=== PATIENT | female | born 1930 | race Asian ===

== ENCOUNTER 2020-02-24 12:59 | Inpatient (IN) | payer MEDICARE, MEDICAID ==
[2020-02-24] VITALS (7 sets, daily range): BP systolic 120–152; BP diastolic 63–91
[~2020-02-24] VITALS: Ht 160 cm; Wt 60.8 kg
--- NOTE | 2020-02-24 13:00 | NUR ---
ED Nurse Note: PATIENT BROUGHT IN BY [facility] FROM [facility] C/O SOB AND SPO2 80%. RECEIVED PATIENT ON NRB 15LMP AT SPO2 94%. PER EMS, PATIENT REPORTED COVID-19 POSITIVE. PATIENT PLACED IN ISOLATION ROOM; DROPLET PRECAUTIONS OBSERVED. PATIENT RESPONDS TO NAME; WITHDRAWS TO PAIN. PATIENT CALM WITH PURPOSEFUL MOVEMENT. CHANGED INTO GOWN; ATTACHED TO MONITOR; ALL SAFETY MEASURES MET. PATIENT
[2020-02-24] MEDS ORDERED: ARICEPT5 MG ORAL (13:20)
[2020-02-24] MEDS ORDERED: KEPPRA500 M4 ORAL (13:20)
[2020-02-24] MEDS ORDERED: SINGULAIR10 MG ORAL (13:20)
[2020-02-24] MEDS ORDERED: LYRICA75 M1 ORAL (13:20)
[2020-02-24] MEDS ORDERED: PROTONIX40 MG ORAL (13:20)
[2020-02-24] MEDS ORDERED: NAMENDA5 MG ORAL (13:20)
[2020-02-24] MEDS ORDERED: HYZAAR 50-12.51 EACH ORAL (13:20)
[2020-02-24] MEDS ORDERED: SPIRONOLACTONE25 MG ORAL (13:35)
[2020-02-24] MEDS ORDERED: NORCO 5-325 TA1 EAC1 ORAL (13:35)
[2020-02-24] MEDS ORDERED: MYSOLINE50 M1 PO (13:35)
[2020-02-24] MEDS ORDERED: ASPIR 8181 MG ORAL (13:35)
[2020-02-24] MEDS ORDERED: MILK OF MA400 MG/51 ORAL (13:35)
[2020-02-24] MEDS ORDERED: VASCEPA1 GM PO (13:35)
--- NOTE | 2020-02-24 13:36 | NUR ---
ED Nurse Note: EKG DONE AT BEDSIDE BY [facility].
--- NOTE | 2020-02-24 13:45 | NUR ---
ED Nurse Note: IV ACCESS ESTABLISHED PRIOR TO ARRIVAL. 2ND IV ACCESS ESTABLISHED ON RIGHT AC 20 G. BLOOD, INITIAL LACTIC, BLOOD CULTURES, URINE, FLU COVID 19 MRSA VRE CRE SWAB COLLECTED; SENT DOWN TO LAB. UPON SKIN ASSESSMENT, SKIN INTACT. RECTAL TEMP 101F; NOTIFIED FARNCK NIXON. NO NEW ORDERS GIVEN.
--- NOTE | 2020-02-24 14:09 | Emergency Room Report ---
History of Present Illness General Chief Complaint: Dyspnea/Respdistress Source: Patient, EMS Present Illness HPI Patient presents with complaints of shortness of breath upper respiratory infection symptoms patient was also reported to be positive Covid-19 At the nursing facility patient herself has underlying dementia and cannot provide significant input There was no reports of vomiting or diarrhea History of present illness is significantly limited Unknown regarding Any rash patient does have DNR DNI status on file upon presentation Allergies: Coded Allergies: No Known Allergies (Unverified , 02/24/20) COVID-19 Screening Contact w/high risk pt: Yes Recent Travel to affected area: No Experienced COVID-19 symptoms?: Yes COVID-19 symptoms experienced: Fever (T>100.4F or >38C), Shortness of Breath, Cough, Runny Nose Patient History Past Medical History: see triage record Last Menstrual Period: 20 years ago Now: No Reviewed Nursing Documentation: PMH: Agreed; PSxH: Agreed Nursing Documentation-PMH Past Medical History: No History, Except For Hx Hypertension: Yes Hx COPD: Yes Hx Neurological Problems: Yes Hx Cerebrovascular Accident: Yes Hx Seizures: No - R PUBIC FX, MUSCLE WEAKNESS, OSTEOPOROSIS, DEMENTIA, GERD, THROMBOCYTOPENIA Review of Systems All Other Systems: negative except mentioned in HPI Physical Exam Vital Signs Date Time Temp Pulse Resp B/P (MAP) Pulse Ox O2 Delivery O2 Flow Rate FiO2 02/24/20 12:54 95.5 88 22 148/91 (110) 94 Non-Rebreather 15.0 Sp02 EP Interpretation: reviewed, normal General Appearance: no apparent distress Head: normocephalic, atraumatic Eyes: bilateral eye PERRL, bilateral eye EOMI ENT: EOM grossly intact Neck: supple Respiratory: crackles - Both lower lobes Cardiovascular #1: regular rate, rhythm Gastrointestinal: non tender, soft Musculoskeletal: other - No obvious focal deficit Neurologic: responsive - Awake and responsive however does not follow all commands Skin: no rash Lymphatic: no adenopathy Procedures Critical Care Time Critical Care Time 50 minutes for multiple re-evaluations presentation concerning for covid-19 possible acute decompensation and respiratory failure not including any procedural time Medical Decision Making Diagnostic Impression: Primary Impression: Respiratory distress Additional Impression: COVID-19 virus detected ER Course Patient is a fairly complex patient with multiple differential to consideration including but not limited to cardiac cardiopulmonary and vascular emergencies Patient is positive covid-19 from nursing facility x-ray does show concerning findings of bilateral infiltrates as well Patient has further hydration performed contact is made with inpatient physician for further antibiotics and Medication Patient is a DO NOT INTUBATE, DO NOT RESUSCITATE And admitted for further inpatient care in critical condition Labs Test 02/26/20 10:40 02/27/20 08:36 02/27/20 09:20 White Blood Count 18.3 K/UL (4.8-10.8) 24.1 K/UL (4.8-10.8) Red Blood Count 4.07 M/UL (4.20-5.40) 4.28 M/UL (4.20-5.40) Hemoglobin 12.6 G/DL (12.0-16.0) 13.1 G/DL (12.0-16.0) Hematocrit 35.4 % (37.0-47.0) 37.7 % (37.0-47.0) Mean Corpuscular Volume 87 FL (80-99) 88 FL (80-99) Mean Corpuscular Hemoglobin 31.0 PG (27.0-31.0) 30.7 PG (27.0-31.0) Mean Corpuscular Hemoglobin Concent 35.6 G/DL (32.0-36.0) 34.8 G/DL (32.0-36.0) Red Cell Distribution Width 9.4 % (11.6-14.8) 10.0 % (11.6-14.8) Platelet Count 289 K/UL (150-450) 307 K/UL (150-450) Mean Platelet Volume 5.4 FL (6.5-10.1) 5.4 FL (6.5-10.1) Neutrophils (%) (Auto) % (45.0-75.0) % (45.0-75.0) Lymphocytes (%) (Auto) % (20.0-45.0) % (20.0-45.0) Monocytes (%) (Auto) % (1.0-10.0) % (1.0-10.0) Eosinophils (%) (Auto) % (0.0-3.0) % (0.0-3.0) Basophils (%) (Auto) % (0.0-2.0) % (0.0-2.0) Differential Total Cells Counted 100 100 Neutrophils % (Manual) 88 % (45-75) 95 % (45-75) Lymphocytes % (Manual) 7 % (20-45) 2 % (20-45) Monocytes % (Manual) 5 % (1-10) 3 % (1-10) Eosinophils % (Manual) 0 % (0-3) 0 % (0-3) Basophils % (Manual) 0 % (0-2) 0 % (0-2) Band Neutrophils 0 % (0-8) 0 % (0-8) Platelet Estimate Adequate Adequate Platelet Morphology Normal Normal Red Blood Cell Morphology Normal Normal Sodium Level 142 MMOL/L (136-145) 146 MMOL/L (136-145) Potassium Level 4.8 MMOL/L (3.5-5.1) 4.3 MMOL/L (3.5-5.1) Chloride Level 107 MMOL/L (98-107) 112 MMOL/L (98-107) Carbon Dioxide Level 18 MMOL/L (21-32) 19 MMOL/L (21-32) Anion Gap 17 mmol/L (5-15) 15 mmol/L (5-15) Blood Urea Nitrogen 27 mg/dL (7-18) 30 mg/dL (7-18) Creatinine 0.9 MG/DL (0.55-1.30) 0.9 MG/DL (0.55-1.30) Estimat Glomerular Filtration Rate 59.0 mL/min (>60) 59.0 mL/min (>60) Glucose Level 111 MG/DL (74-106) 157 MG/DL (74-106) Calcium Level 9.1 MG/DL (8.5-10.1) 9.1 MG/DL (8.5-10.1) Magnesium Level 1.9 MG/DL (1.8-2.4) Pro-B-Type Natriuretic Peptide 74741 pg/mL (0-125) Arterial Blood pH 7.370 (7.350-7.450) Arterial Blood Partial Pressure CO2 37.6 mmHg (35.0-45.0) Arterial Blood Partial Pressure O2 47.3 mmHg (75.0-100.0) Arterial Blood HCO3 21.2 mmol/L (22.0-26.0) Arterial Blood Oxygen Saturation 85.9 % (95-100) Arterial Blood Base Excess 3.6 (-2-2) Isaac Test Positive Rhythm Strip Diag. Results EP Interpretation: yes Rate: 88 Rhythm: NSR, no PVC's, no ectopy Chest X-Ray Diagnostic Results Chest X-Ray Diagnostic Results : Chest X-Ray Ordered: Yes # of Views/Limited/Complete: 1 View Indication: Shortness of Breath EP Interpretation: Yes Interpretation: no effusion, no pneumothorax, other - Bilateral patchy infiltrates Impression: Other - Bilateral patchy infiltrates Electronically Signed by: Estefanía Houser DO Last Vital Signs Date Time Temp Pulse Resp B/P (MAP) Pulse Ox O2 Delivery O2 Flow Rate FiO2 02/24/20 12:54 95.5 88 22 148/91 (110) 94 Non-Rebreather 15.0 Status: improved Disposition: ADMITTED INPATIENT Condition: Critical Referrals: NON PHYSICIAN (PCP) Estefanía Houser DO Feb 24, 2020 14:09
--- NOTE | 2020-02-24 14:27 | Diagnostic Imaging Report ---
Indication: Chest pain Technique: One view of the chest Comparison: none Findings: There is fairly extensive and diffuse bilateral mixed airspace and interstitial disease. This is slightly worse on the right than on the left. There may be a small effusion on the right. The heart size is upper limits normal. The aorta is tortuous calcified. Small metallic foreign bodies are seen within the supraclavicular fossae bilaterally. These probably represent residual from prior acupuncture Impression: Bilateral diffuse and fairly extensive interstitial and airspace infiltrates, versus edema Suspect small right pleural effusion
--- NOTE | 2020-02-24 14:30 | NUR ---
ED Nurse Note: per lab, initial chemistry grossly hemolyzed; repeat chemistry drawn; sent down to lab.
[2020-02-24 14:45] LABS: BASOPHILS % (AUTO) 0.3 % (0.0-2.0); EOSINOPHILS % (AUTO) 3.1 % (0.0-3.0); HEMATOCRIT 43.1 % (37.0-47.0); HEMOGLOBIN 14.9 G/DL (12.0-16.0); MEAN CORPUSCULAR VOLUME 88 FL (80-99); MONOCYTES % (AUTO) 7.2 % (1.0-10.0); NEUTROPHILS % (AUTO) 73.4 % (45.0-75.0); PLATELET COUNT 276 K/UL (150-450); RED BLOOD COUNT 4.89 M/UL (4.20-5.40); RED CELL DISTRIBUTION WIDTH 9.7 % (11.6-14.8)
[2020-02-24 14:54] LABS: APPEARANCE,URINE CLEAR; BILIRUBIN, URINE NEGATIVE (NEGATIVE); GLUCOSE, URINE (UA) NEGATIVE (NEGATIVE); KETONES,URINE 1+ (NEGATIVE); LEUKOCYTE ESTERASE ,URINE NEGATIVE (NEGATIVE); NITRITE,URINE NEGATIVE (NEGATIVE); PH,URINE 5 (4.5-8.0); PROTEIN,URINE 1+ (NEGATIVE); UROBILINOGEN,URINE NORMAL MG/DL (0.0-1.0)
[2020-02-24 14:56] LABS: COLOR,URINE YELLOW
--- NOTE | 2020-02-24 15:50 | NUR ---
ED Nurse Note: responsibility assumed. Pt in bed on 15L NRB, VSS. Pt on monitor. Requested sitter via Charge nurse for close monitoring. Awaiting orders.
--- NOTE | 2020-02-24 16:30 | NUR ---
ED Nurse Note: Pt resting in bed, VSS, on 15L NRB.
--- NOTE | 2020-02-24 17:30 | NUR ---
ED Nurse Note: Pt resting in bed on 15L NRB vss no ss of distress noted.
--- NOTE | 2020-02-24 18:25 | NUR ---
ED Nurse Note: Unable to make contact with warehouse handler regarding sitter. will continue to monitor. pt resting in bed on 15L NRB VSS. no ss of distress noted.
--- NOTE | 2020-02-24 19:25 | NUR ---
ED Nurse Note: Pt resting in bed, VSS on 15L NRB. NO ss of distress noted. Report and hand off given to MITCHELL Salazar and responsibility assumed.
--- NOTE | 2020-02-24 20:40 | NUR ---
ED Nurse Note: Hand off given by MITCHELL Salazar. Pt placed in RM 07 and placed on monitor. PT on 15L NRB. VSS no ss of distress noted.
--- NOTE | 2020-02-24 21:30 | NUR ---
ED Nurse Note: IV fluids initiated. pt tolerated well no ss of distress noted.
[2020-02-24] MEDS ORDERED: Azithromycin 250mg tab ORAL ONE (23:00)
[2020-02-24] MEDS ORDERED: Hydroxychloroquine Fact Sheet MISC ONE (23:00)
[2020-02-24] MEDS: Lyrica 75mg cap ORAL SCH (23:00)
[2020-02-24] MEDS ORDERED: Milk of Magnesia 30ml Ud ORAL PRN (23:00)
--- NOTE | 2020-02-24 23:00 | NUR ---
ED Nurse Note: IV fluids initiated and running on IV pump. Pt tolerating well, no ss of distress noted.
[2020-02-24] MEDS: 1/2NS w/KCl 20mEq 1000ml 1,000 ML IV SCH (23:37)
[2020-02-25 00:15] VITALS: BP 112/81
[2020-02-25] MEDS ORDERED: Azithromycin 500 MG in NS 275 ML IV ONE (00:30)
[2020-02-25] MEDS ORDERED: levETIRAcetam 500mg/NS100ml 100 ML IVPB ONE (00:30)
--- NOTE | 2020-02-25 01:30 | NUR ---
ED Nurse Note: pt resting in bed, vss no ss of distress noted.
--- NOTE | 2020-02-25 03:56 | NUR ---
ED Nurse Note: lab at bedside
--- NOTE | 2020-02-25 04:15 | Consultation ---
DATE OF CONSULTATION: 02/24/2020 CARDIOLOGY CONSULTATION CONSULTING PHYSICIAN: Milton Webb M.D. REFERRING PHYSICIAN: Yoel Strong M.D. REASON: Cardiovascular management in the setting of COVID-19 pneumonia. HISTORY OF PRESENT ILLNESS: This is an 89-year-old male. He has a history of hypertension, COPD, and cerebrovascular disease. He was sent to the emergency room for evaluation of respiratory distress and hypoxia with a positive COVID-19 swab isolated. He has had exposure at the [facility] other patients with COVID-19. PAST MEDICAL HISTORY: Includes hypertension, COPD, osteoporosis, GERD, cerebrovascular disease with dementia, history of right pubic fracture. ALLERGIES: None. MEDICATIONS: Reviewed and reconciled. ADVANCE DIRECTIVE: DNR. FAMILY HISTORY: Noncontributory. SOCIAL HISTORY: No record of recent smoking, alcohol, or substance abuse. REVIEW OF SYSTEMS: Pertinent data from records is obtained and outlined above. Otherwise, patient is unable to give any reliable historical data. PHYSICAL EXAMINATION: VITAL SIGNS: Blood pressure 148/91, heart rate 88, respirations 22, temperature 95.5, he is saturating 94% on a non-rebreather mask. HEENT: Temporal wasting. LUNGS: Bilateral rales. Jugular venous pressure normal. No accessory muscle use. CARDIAC: Regular rhythm and rate. Normal S1, S2 with a 1/6 systolic murmur at base. ABDOMEN: Soft. EXTREMITIES: No edema. NEUROLOGIC: Symmetric strength. Moderate cognitive impairment. EKG is pending. Chest x-ray reveals diffuse interstitial airspace disease with right pleural effusion. IMPRESSION: 1. COVID-19 pneumonia. 2. Hypertensive heart disease. 3. Cerebrovascular disease. 4. Hypoxia. 5. Seizure disorder. PLAN: 1. High risk for progression of pulmonary disease. 2. Hydroxychloroquine should be started. 3. He has already received a dose of azithromycin. Further treatment with azithromycin will be considered following review of his EKG. 4. He will be placed on cardiac cath lab radiology technologist. 5. Potassium and magnesium levels will be closely followed. Milton Webb M.D. DR: CHARBEL JOB#: [id number] CC:
--- NOTE | 2020-02-25 05:45 | NUR ---
ED Nurse Note: pt resting in bed, vss no ss of distress noted.
--- NOTE | 2020-02-25 07:18 | NUR ---
ED Nurse Note: report given to Mayra Dwyer RN
[2020-02-25 07:20] VITALS: BP 124/84
--- NOTE | 2020-02-25 08:30 | NUR ---
ED Nurse Note: Blood drawn (green and purple top) sent to labs.
--- NOTE | 2020-02-25 08:45 | NUR ---
TRANSFER TO FLOOR: Patient transferred to [address] [place] [address] as ordered, per Dr. Webb. Report given to MITCHELL Blancas. Belongings and medications given to receiving nurse. Family and or S/O informed of transfer.
[2020-02-25 08:48] LABS: BASOPHILS % (AUTO) 0.3 % (0.0-2.0); EOSINOPHILS % (AUTO) 0.3 % (0.0-3.0); HEMATOCRIT 37.7 % (37.0-47.0); HEMOGLOBIN 12.9 G/DL (12.0-16.0); LYMPHOCYTES % (AUTO) 8.9 % (20.0-45.0); MEAN CORPUSCULAR VOLUME 89 FL (80-99); MONOCYTES % (AUTO) 7.1 % (1.0-10.0); NEUTROPHILS % (AUTO) 83.4 % (45.0-75.0); PLATELET COUNT 236 K/UL (150-450); RED BLOOD COUNT 4.24 M/UL (4.20-5.40); RED CELL DISTRIBUTION WIDTH 9.9 % (11.6-14.8); WHITE BLOOD COUNT 9.2 K/UL (4.8-10.8)
[2020-02-25 08:54] LABS: ANION GAP 10 mmol/L (5-15); BLOOD UREA NITROGEN 47 mg/dL (7-18); CALCIUM 9.2 MG/DL (8.5-10.1); CARBON DIOXIDE 23 MMOL/L (21-32); CHLORIDE 106 MMOL/L (98-107); CREATININE 1.1 MG/DL (0.55-1.30); POTASSIUM 5.4 MMOL/L (3.5-5.1); SODIUM 139 MMOL/L (136-145)
--- NOTE | 2020-02-25 08:56 | NUR ---
NURSE NOTES: Received patient from MITCHELL Nunez from emergency room. Patient is aox1, nonverbal, confused and restless. Isolation precautions observed and initiated for Positive COVID-19. Patient came in hospital bed. Patient is on non rebreather mask at 15L and o2 sat of 96%. Patient VS stable, Patient placed on cardiac care nurse and placed in gown. Patient has a morris catheter present on admission draining yellow colored urine. Patient has a L FA 20g running 1/2 NS with 20 mEq of KCL at 100ml/hr and a R hand 20g patent and saline locked. Bed is in lowest position, locked, and alarmed. Optimal HOB placement. Side rails x3 and call light placed within reach. Will continue to monitor.
[2020-02-25 09:00] VITALS: BP 133/92
[2020-02-25] MEDS: 1/2NS w/KCl 20mEq 1000ml 1,000 ML IV SCH (09:00)
[2020-02-25] MEDS: Lyrica 75mg cap ORAL SCH ×3 (09:00→18:00)
[2020-02-25 09:07] LABS: ALANINE AMINOTRANSFERASE 29 U/L (12-78); ALBUMIN 2.8 G/DL (3.4-5.0); ALBUMIN/GLOBULIN RATIO 0.6 (1.0-2.7); ALKALINE PHOSPHATASE 55 U/L (46-116); ASPARTATE AMINO TRANSFERASE 62 U/L (15-37); BILIRUBIN,TOTAL 0.5 MG/DL (0.2-1.0)
--- NOTE | 2020-02-25 09:40 | NUR ---
NURSE NOTES: patient unable to take medication due to SOB when taken off non rebreather mask.
--- NOTE | 2020-02-25 10:45 | NUR ---
NURSE NOTES: Called Dr. Webb regarding patient potassium level of 5.4. IV fluid on hold until clarified orders. Charge nurse made aware.
--- NOTE | 2020-02-25 11:00 | NUR ---
NURSE NOTES: Dr. Webb notified of patient having difficulty swallowing medication. Charge nurse notified.
[2020-02-25 16:00] VITALS: BP 142/72
[2020-02-25] MEDS ORDERED: 1/2 NS 1000ml IV ONE (16:53)
--- NOTE | 2020-02-25 17:25 | NUR ---
HAND-OFF: Report given to MITCHELL Murillo. Patient in stable condition. Addendum: 02/25/20 at 2019 by Yonny Aguirre RN Corrected time 1924
--- NOTE | 2020-02-25 17:26 | NUR ---
NURSE NOTES: received pt from Yash RN., pt is awake and confused Wolof speaker. pt seems irritable. bilateral soft wrist restrain is on the pt, pulse noted, skin intact. Right hand 20G and Right wrist 20G IV site intact, clean, and patent. Christensen cath is in place draining well with gravity. non-breather mask 15L no SOB noted. pt's O2sat is at 97%. call light within reach. bed at the lowest position, alarmed, and locked. will continue to monitor pt with plan of care.
--- NOTE | 2020-02-25 18:45 | Consultation ---
DATE OF CONSULTATION: 02/25/2020 PULMONARY CONSULTATION CONSULTING PHYSICIAN: Gaurav Melissa MD. HISTORY OF PRESENT ILLNESS: This is an 89-year-old male who is admitted to the hospital with findings of COVID-19 positivity. He is a detention resident and has been exposed to with COVID-19. Currently, the patient denies any symptoms. He is however on non-rebreather mask at 15 L, saturations being 94%. Upon review of his imaging studies, I note that his x-ray of chest has shown bilateral interstitial opacities as well as small right effusion. Per review of his medications, I note that the patient has received Plaquenil as well as azithromycin. PAST MEDICAL HISTORY: Notable for hypertension, COPD, osteoporosis, GERD, previous CVA, dementia, and previous fractures in the pubic area. ALLERGIES: None. HOME MEDICATIONS: Reviewed and reconciled in the chart. Current antibiotics include Plaquenil and azithromycin. CODE STATUS: DNR. SOCIAL HISTORY: senior care resident. PHYSICAL EXAMINATION: GENERAL: Reveals an 89-year-old male. VITAL SIGNS: O2 saturation 98% on non-rebreather mask. HEENT: Unremarkable. LUNGS: Show decreased breath sounds bilaterally. HEART: Normal heart sounds. ABDOMEN: Soft. EXTREMITIES: There is no edema. LABORATORY DATA: Lab testing shows normal CBC and BMP with a potassium of 5.4, creatinine 1.1. Troponin 0.008. Lactic acid 1.6. IMPRESSION: 1. COVID-19 pneumonia. 2. Hypertension. 3. CVA. 4. Severe hypoxemia. DISCUSSION: Admit to the hospital. Continue broad-spectrum antibiotics. satellite project site monitor. Oxygen via non-rebreather mask. Avoid hypo-oxygen. Code status DNR. We will follow carefully. Gaurav Melissa M.D. DR: Hazel JOB#: [id number] CC:
--- NOTE | 2020-02-25 19:30 | Consultation ---
DATE OF CONSULTATION: 02/25/2020 INFECTIOUS DISEASES CONSULTATION CONSULTING PHYSICIAN: Nicholas Hoang MD. REFERRING PHYSICIAN: Milton Webb MD. REASON FOR CONSULTATION: To rule out COVID-19 pneumonia. HISTORY OF PRESENTING ILLNESS: This is an 89-year-old lady with history of dementia, who came in with shortness of breath. She was also found to be positive for COVID-19 and has been admitted and Infectious Diseases consultation has been obtained for antibiotics. PAST MEDICAL HISTORY: 1. History of dementia. 2. History of hypertension. 3. COPD. 4. CVA. SOCIAL HISTORY: Unknown. FAMILY HISTORY: Unknown. REVIEW OF SYSTEMS: Unable to obtain currently. MEDICATIONS: As an inpatient, she is on hydroxychloroquine, Lyrica, Keppra, milk of magnesia, and Tylenol. ALLERGIES: No known drug allergies. PHYSICAL EXAMINATION: VITAL SIGNS: Temperature of 99.2, T-max of 101.1, pulse of 99, respiratory rate 17, blood pressure of 133/92, and O2 saturation of 94%. GENERAL: Examination deferred due to COVID-19. LABORATORY DATA: White count 9.2, hemoglobin 12.9, hematocrit 37.7, MCV 89, platelet count of 236,000; neutrophils of 83%. Sodium 139, potassium 5.4, chloride 106, bicarb 23, BUN 47, creatinine 1.1, glucose 122, calcium 9.2. Total bilirubin 0.5, AST 62, ALT 29, alkaline phosphatase 55. Troponin 0.008. Total protein 7.2, albumin 2.8. UA is showing zero white cells. Chest x-ray is showing bilateral diffuse and fairly extensive interstitial and airspace disease versus edema, small right-sided pleural effusion noted. ASSESSMENT: 1. This is an 89-year-old lady with history of dementia as well as hypertension and COPD, who comes in with shortness of breath and was tested positive for COVID-19 pneumonia. 2. Hypertension. 3. COPD. 4. CVA. 5. Dementia. PLAN: 1. Continue hydroxychloroquine. 2. Continue isolation. 3. We will follow up the patient clinically. I would like to thank, Dr. Webb, for this consultation. Nicholas Hoang M.D. DR: Ericka JOB#: [id number] CC: Milton Webb M.D.
--- NOTE | 2020-02-26 02:00 | NUR ---
NURSE NOTES: cleaned pt, provided new gown, provided oral care, and pt reposition her self at this moment. Bilateral soft wrist restrain, pulse noted, skin intact, and pt does not show SOB at this moment.
--- NOTE | 2020-02-26 03:15 | Progress Note ---
DATE: 02/25/2020 CARDIOLOGY PROGRESS NOTE SUBJECTIVE: Condition is deteriorating, increasing shortness of breath and hypoxia noted. The patient is also febrile. OBJECTIVE: VITAL SIGNS: 100.8 temperature, blood pressure 142/72, heart rate 104, respiratory rate 23. She is on 15 liters non-rebreather mask. Saturating 97%. Exam limited due to isolation. LUNGS: Bilateral rhonchi. CARDIAC: Regular rhythm. Rapid rate. Normal S1, S2. ABDOMEN: Soft. EXTREMITIES: No edema. LABORATORY AND DIAGNOSTIC DATA: Sodium 139, potassium 5.4, bicarb 23. BUN 47, creatinine 1.1. Glucose 122. Albumin 2.8. Troponin negative. White count 9.2, hemoglobin 12.9. Urinalysis with no active sediment. Chest x-ray yesterday was notable for patchy infiltrates and airspace disease. IMPRESSION: 1. COVID-19 pneumonia. 2. Respiratory failure. 3. Hypoxia. 4. Prerenal azotemia. 5. Moderate protein-calorie malnutrition. 6. Hyperkalemia. 7. Sinus tachycardia. 8. Ischemic heart disease. PLAN: 1. Remove potassium from IV fluids. 2. Adjust IV fluid rate. 3. Respiratory therapy, oxygenation. 4. Continue day #2 of hydroxychloroquine and azithromycin. 5. Monitor QTc intervals. 6. DNR, DNI based on advanced directives. Milton Webb M.D. DR: TITO JOB#: [id number] CC:
--- NOTE | 2020-02-26 07:15 | NUR ---
HAND-OFF: Report given to Mariana MEDRANO., pt remians stable condition at this moment. endorsed plan of care.
--- NOTE | 2020-02-26 07:16 | NUR ---
NURSE NOTES: Received patient in bed. Awake, confused, on bilateral soft wrist restraints. Patient unable to follow commands. Noted patient with morris cath and matt urine noted in drainage bag. Contact and droplet isolation observed. Bed in lowest position. On non rebreather mask with oxygen saturation at 90%. Will continue plan of care.
[2020-02-26 08:00] VITALS: BP 136/77
[2020-02-26] MEDS: Lyrica 75mg cap ORAL SCH ×3 (09:00→18:00)
[2020-02-26] MEDS: Heparin 5000 units/ml inj SUBQ SCH ×2 (09:22→23:11)
--- NOTE | 2020-02-26 11:13 | Pulmonology Progress Note ---
Assessment/Plan Assessment/Plan IMPRESSION: 1. COVID-19 pneumonia. 2. Hypertension. 3. CVA. 4. Severe hypoxemia. On non-rebreather mask DISCUSSION: Continue broad-spectrum antibiotics. medicare nurse. Oxygen via non-rebreather mask. Code status DNR. I will follow carefully. Gaurav Melissa M.D. Subjective Interval Events: None new Constitutional: Reports: no symptoms HEENT: Repors: no symptoms Respiratory: Reports: shortness of breath Cardiovascular: Reports: no symptoms Allergies: Coded Allergies: No Known Allergies (Unverified , 02/24/20) Objective Last 24 Hour Vital Signs Date Time Temp Pulse Resp B/P (MAP) Pulse Ox O2 Delivery O2 Flow Rate FiO2 02/26/20 08:00 Non-Rebreather 15.0 02/26/20 08:00 15.0 02/26/20 07:58 97 02/26/20 04:00 15.0 02/26/20 04:00 Non-Rebreather 15.0 02/26/20 03:51 108 02/26/20 00:00 15.0 02/26/20 00:00 Non-Rebreather 15.0 02/25/20 23:51 104 02/25/20 20:00 15.0 02/25/20 20:00 Non-Rebreather 15.0 02/25/20 19:25 115 02/25/20 16:00 15.0 02/25/20 16:00 107 02/25/20 16:00 Non-Rebreather 15.0 02/25/20 16:00 100.8 104 23 142/72 (95) 97 02/25/20 12:00 97 02/25/20 12:00 Non-Rebreather 15.0 02/25/20 12:00 15.0 Intake and Output 02/25/20 02/26/20 19:00 07:00 Intake Total 87.5 ml 761.25 ml Output Total 600 ml Balance 87.5 ml 161.25 ml Intake Oral 0 ml IV Total 87.5 ml 761.25 ml Output Urine Total 600 ml General Appearance: no acute distress HEENT: normocephalic Respiratory/Chest: chest wall non-tender, decreased breath sounds Cardiovascular: normal peripheral pulses Abdomen: soft, non tender Microbiology Date/Time Source Procedure Growth Status 02/24/20 14:00 Blood Blood Culture - Preliminary NO GROWTH AFTER 24 HOURS Resulted 02/24/20 13:45 Blood Blood Culture - Preliminary NO GROWTH AFTER 24 HOURS Resulted 02/24/20 13:45 Nasal Nares - Final Complete 02/24/20 13:45 Nasal Nares - Final Complete Current Medications Medications (Trade) Dose Ordered Sig/Ashley Route PRN Reason Start Time Stop Time Status Last Admin Dose Admin Acetaminophen (Tylenol) 650 mg EVERY 4 HOURS PRN ORAL fever GILL pain 02/24/20 17:00 03/25/20 16:59 Heparin Sodium (Porcine) (Heparin 5000 units/ml) 5,000 units EVERY 12 HOURS SUBQ 02/26/20 09:00 04/11/20 08:59 02/26/20 09:22 Hydroxychloroquine Sulfate (Plaquenil) 200 mg TWICE A DAY ORAL 02/25/20 18:00 02/29/20 09:01 Levetiracetam (Keppra) 250 mg BID ORAL 02/24/20 23:00 03/25/20 22:59 02/24/20 23:36 Magnesium Hydroxide (Mom) 30 ml DAILY PRN ORAL Constipation 02/24/20 23:00 03/25/20 22:59 Pregabalin (Lyrica) 75 mg THREE TIMES A DAY ORAL 02/24/20 23:00 03/25/20 22:59 Sodium Chloride 1,000 ml @ 75 mls/hr [id number] IV 02/25/20 17:30 03/26/20 17:29 02/26/20 05:51 Gaurav Melissa MD Feb 26, 2020 11:13
[2020-02-26 12:00] VITALS: BP 151/69
--- NOTE | 2020-02-26 12:39 | NUR ---
NURSE NOTES: Informed Dr. Yancy Venegas that patient's Covid-19 swab is positive upon admission.
[2020-02-26 12:45] LABS: HEMATOCRIT 35.4 % (37.0-47.0); HEMOGLOBIN 12.6 G/DL (12.0-16.0); MEAN CORPUSCULAR VOLUME 87 FL (80-99); PLATELET COUNT 289 K/UL (150-450); RED BLOOD COUNT 4.07 M/UL (4.20-5.40); RED CELL DISTRIBUTION WIDTH 9.4 % (11.6-14.8); WHITE BLOOD COUNT 18.3 K/UL (4.8-10.8)
--- NOTE | 2020-02-26 12:52 | Infectious Diseases Prog Note ---
Assessment/Plan Assessment/Plan A; 1.COVID19 pneumonia. 2. Hypertension. 3. COPD. 4. CVA. 5. Dementia. PLAN: 1. Continue hydroxychloroquine. 2. Continue isolation. 3. Add Zithromax Subjective ROS Limited/Unobtainable: Yes Constitutional: Reports: fever, other - Hxrc=083.8 Neurologic: Reports: confusion, other - on restraint Allergies: Coded Allergies: No Known Allergies (Unverified , 02/24/20) Objective Vital Signs Last 24 Hour Vital Signs Date Time Temp Pulse Resp B/P (MAP) Pulse Ox O2 Delivery O2 Flow Rate FiO2 02/26/20 11:40 116 02/26/20 08:00 Non-Rebreather 15.0 02/26/20 08:00 98.6 102 23 136/77 (96) 90 02/26/20 08:00 15.0 02/26/20 07:58 97 02/26/20 04:00 15.0 02/26/20 04:00 Non-Rebreather 15.0 02/26/20 03:51 108 02/26/20 00:00 15.0 02/26/20 00:00 Non-Rebreather 15.0 02/25/20 23:51 104 02/25/20 20:00 15.0 02/25/20 20:00 Non-Rebreather 15.0 02/25/20 19:25 115 02/25/20 16:00 15.0 02/25/20 16:00 107 02/25/20 16:00 Non-Rebreather 15.0 02/25/20 16:00 100.8 104 23 142/72 (95) 97 Height (Feet): 5 Height (Inches): 2.99 Weight (Pounds): 149 HEENT: mucous membranes moist Respiratory/Chest: other - few rhonchi, oxygen by rebreathing mask Cardiovascular: tachycardia Abdomen: soft, non tender Extremities: no edema Neurologic/Psychiatric: alert, responsive Microbiology Date/Time Source Procedure Growth Status 02/24/20 14:00 Blood Blood Culture - Preliminary NO GROWTH AFTER 24 HOURS Resulted 02/24/20 13:45 Blood Blood Culture - Preliminary NO GROWTH AFTER 24 HOURS Resulted 02/24/20 13:45 Nasopharynx Coronavirus COVID-19 PCR (STEPHENIE) - Final Complete 02/24/20 13:45 Nasal Nares - Final Complete 02/24/20 13:45 Nasal Nares - Final Complete Laboratory Tests Test 02/26/20 10:40 White Blood Count 18.3 K/UL (4.8-10.8) #H Red Blood Count 4.07 M/UL (4.20-5.40) L Hemoglobin 12.6 G/DL (12.0-16.0) Hematocrit 35.4 % (37.0-47.0) L Mean Corpuscular Volume 87 FL (80-99) Mean Corpuscular Hemoglobin 31.0 PG (27.0-31.0) Mean Corpuscular Hemoglobin Concent 35.6 G/DL (32.0-36.0) Red Cell Distribution Width 9.4 % (11.6-14.8) L Platelet Count 289 K/UL (150-450) Mean Platelet Volume 5.4 FL (6.5-10.1) L Neutrophils (%) (Auto) % (45.0-75.0) Lymphocytes (%) (Auto) % (20.0-45.0) Monocytes (%) (Auto) % (1.0-10.0) Eosinophils (%) (Auto) % (0.0-3.0) Basophils (%) (Auto) % (0.0-2.0) Neutrophils % (Manual) Pending Lymphocytes % (Manual) Pending Platelet Estimate Pending Platelet Morphology Pending Sodium Level Pending Potassium Level Pending Chloride Level Pending Carbon Dioxide Level Pending Blood Urea Nitrogen Pending Creatinine Pending Estimat Glomerular Filtration Rate Pending Glucose Level Pending Calcium Level Pending Magnesium Level Pending Pro-B-Type Natriuretic Peptide Pending Current Medications Medications (Trade) Dose Ordered Sig/Ashley Route PRN Reason Start Time Stop Time Status Last Admin Dose Admin Acetaminophen (Tylenol) 650 mg EVERY 4 HOURS PRN ORAL fever GILL pain 02/24/20 17:00 03/25/20 16:59 Heparin Sodium (Porcine) (Heparin 5000 units/ml) 5,000 units EVERY 12 HOURS SUBQ 02/26/20 09:00 04/11/20 08:59 02/26/20 09:22 Hydroxychloroquine Sulfate (Plaquenil) 200 mg TWICE A DAY ORAL 02/25/20 18:00 4/15/20 09:01 Levetiracetam (Keppra) 250 mg BID ORAL 02/24/20 23:00 03/25/20 22:59 02/24/20 23:36 Magnesium Hydroxide (Mom) 30 ml DAILY PRN ORAL Constipation 02/24/20 23:00 03/25/20 22:59 Pregabalin (Lyrica) 75 mg THREE TIMES A DAY ORAL 02/24/20 23:00 03/25/20 22:59 Sodium Chloride 1,000 ml @ 75 mls/hr [id number] IV 02/25/20 17:30 03/26/20 17:29 02/26/20 05:51 Juan Venegas MD Feb 26, 2020 12:52
[2020-02-26] MEDS ORDERED: Azithromycin 250mg tab ORAL SCH (13:00)
[2020-02-26 14:04] LABS: ANION GAP 17 mmol/L (5-15); BLOOD UREA NITROGEN 27 mg/dL (7-18); CALCIUM 9.1 MG/DL (8.5-10.1); CARBON DIOXIDE 18 MMOL/L (21-32); CHLORIDE 107 MMOL/L (98-107); CREATININE 0.9 MG/DL (0.55-1.30); POTASSIUM 4.8 MMOL/L (3.5-5.1); SODIUM 142 MMOL/L (136-145)
[2020-02-26] MEDS ORDERED: NS 275ml ONE (14:16)
[2020-02-26] MEDS: Azithromycin 250mg tab ORAL SCH (14:57)
[2020-02-26 16:00] VITALS: BP 149/67
--- NOTE | 2020-02-26 19:30 | NUR ---
NURSE NOTES: Informed Dr. Webb that patient is not tolerating oral medications. With NGT insertion order obtained. Will endorse to incoming shift.
--- NOTE | 2020-02-26 19:45 | NUR ---
HAND-OFF: Report given to MITCHELL Davidson.
--- NOTE | 2020-02-26 19:46 | NUR ---
NURSE NOTES: Received order from Dr. Webb to insert NG tube for medications only. Noted and carried out.
--- NOTE | 2020-02-26 19:58 | NUR ---
NURSE NOTES: Received report from MITCHELL Peña. Patient is awake lying semi-lassiter's; restless. No signs of acute distress or pain noted at this time. On 15L non-rebreather mask. AOx1; primarily speaks Irish, but unable to make needs known. Checked IV site, lines, and IV rate; patent and running. No erythema, bleeding, or infiltration noted. Christensen catheter draining well to gravity. Bed at lowest position, brakes on, siderails up x3. Call light within reach. Will continue to monitor.
[2020-02-26 20:00] VITALS: BP 146/78
--- NOTE | 2020-02-26 22:35 | NUR ---
NURSE NOTES: Per Selam, patient's daughter, she will discuss and consult NG tube placement with family first.
[2020-02-27] VITALS (9 sets, daily range): BP systolic 139–155; BP diastolic 74–89
[2020-02-27] MEDS ORDERED: cefTRIAXone 1 GM in D5W 55 ML IVPB SCH (04:00)
--- NOTE | 2020-02-27 05:15 | Progress Note ---
DATE: 02/26/2020 CARDIOLOGY PROGRESS NOTE SUBJECTIVE: The patient remains with respiratory distress, on a non-rebreather mask. Oxygen saturations are 97% on 15 liters. Monitor sinus tachycardia. Temperature max 100.8. OBJECTIVE: VITAL SIGNS: Blood pressure 151/69, pulse 102, respirations 23. LUNGS: Bilateral breath sounds with rhonchi. CARDIAC: Regular rhythm. Rapid rate. Normal S1 and S2. ABDOMEN: Soft. EXTREMITIES: No edema. LABORATORY DATA: White count 18 and hemoglobin 12. Potassium 4.8, bicarb 18, BUN 27, and creatinine 0.9. Magnesium 1.9. Pro-natriuretic peptide is over 13,000. IMPRESSION: 1. COVID-19 pneumonia. 2. Leukocytosis. 3. Hypertensive heart disease. 4. Acute diastolic congestive heart failure. 5. Cerebrovascular disease with dementia. 6. Hypoxia. PLAN: 1. Hydroxychloroquine and azithromycin. 2. Isolation. 3. Cardiac monitoring. 4. Observe for signs of QTc prolongation. 5. Replace electrolytes as needed. 6. Diuresis trial. 7. DNR, DNI based on advanced directives. 8. NGtube placed for meds. Milton Wbeb M.D. DR: DAVID JOB#: [id number] CC: GUERA
--- NOTE | 2020-02-27 07:40 | NUR ---
NURSE NOTES: Received report from MITCHELL Davidson. The patient is being anxious and agitated on the bed. The patient is AOx2 and understands German. The patient's bed in the lowest position, call light in reach, and fall, aspiration, and seizure precaution reinforced. IV site on R hand 20G and 22G intact and patent. Per MITCHELL Davidson, the family members does not want NGT placement. The patient is on 15L non-rebreather, and oxygen saturation ranges between 80-88%. The patient's Christensen intact and draining by gravity. Will continue plan of care. Addendum: 02/27/20 at 1053 by Abdulaziz Quezada RN D/C'ed restraints per order. The patient's skin and circulation intact.
--- NOTE | 2020-02-27 07:41 | NUR ---
HAND-OFF: Report given to MITCHELL Mcclain. Patient is awake lying semi-lassiter's; resting comfortably. Christensen catheter draining well to gravity. In stable condition.
--- NOTE | 2020-02-27 08:00 | NUR ---
NURSE NOTES: Notified Dr. Webb regarding abnormal findings of the patient. SpO2 of 80-88% on non-rebreather, refusal of NGT per family member, high aspiration risk and no eating, elevated WBC, and sinus tachycardia. Also, notified Dr. Melissa regarding desaturation with lowest of 80% even with 15L non-rebreather. Received following order from on-call physician, which is Dr. Strong: stat ABG, D5 0.9%NS @60mL/hr, CBC, and BMP. Will carry out the order as soon as possible. Will continue plan of care.
--- NOTE | 2020-02-27 08:30 | NUR ---
NURSE NOTES: Tried to call MOTOR POOL CLERK (Rapid response) for the patient due to desaturation (lowest of 80%) but per charge nurse, no need to call MOTOR POOL CLERK since Dr. Melissa, charge nurse, nursing quality assurance supervisor, and nursing technician were notified regarding the patient's condition and the code status of DNR/DNI. Will closely monitor the patient. Will continue plan of care.
[2020-02-27] MEDS ORDERED: D5NS 1,000 ML IV SCH (09:00)
[2020-02-27] MEDS: Heparin 5000 units/ml inj SUBQ SCH ×2 (09:00→20:46)
[2020-02-27] MEDS: Lyrica 75mg cap ORAL SCH ×3 (09:00→17:07)
--- NOTE | 2020-02-27 09:00 | NUR ---
NURSE NOTES: Spoke with Dr. Melissa via telephone, informed that patient is having low oxygen saturation with non-rebreather mask. ABG was done, with abnormal ABG results. No new order at this time.
[2020-02-27] MEDS: Azithromycin 250mg tab ORAL SCH (09:04)
--- NOTE | 2020-02-27 09:10 | NUR ---
NURSE NOTES: Dr. Melissa at the bedside assessed the patient. Notified low oxygen saturation and abnormal ABG even with 15L non-rebreather. No new order at this time. Continue current oxygen therapy per Dr. Melissa. Will closely monitor the patient. Will continue plan of care.
--- NOTE | 2020-02-27 10:00 | NUR ---
NURSE NOTES: Notified Dr. Hoang regarding trending up of WBC from 18.3 to 24.1. Awaiting for call back. Will closely monitor the patient. Will continue plan of care.
[2020-02-27 10:06] LABS: HEMATOCRIT 37.7 % (37.0-47.0); HEMOGLOBIN 13.1 G/DL (12.0-16.0); MEAN CORPUSCULAR VOLUME 88 FL (80-99); PLATELET COUNT 307 K/UL (150-450); RED BLOOD COUNT 4.28 M/UL (4.20-5.40)
[2020-02-27 10:11] LABS: WHITE BLOOD COUNT 24.1 K/UL (4.8-10.8)
[2020-02-27 10:13] LABS: ANION GAP 15 mmol/L (5-15); BLOOD UREA NITROGEN 30 mg/dL (7-18); CALCIUM 9.1 MG/DL (8.5-10.1); CARBON DIOXIDE 19 MMOL/L (21-32); CHLORIDE 112 MMOL/L (98-107); CREATININE 0.9 MG/DL (0.55-1.30); POTASSIUM 4.3 MMOL/L (3.5-5.1); SODIUM 146 MMOL/L (136-145)
--- NOTE | 2020-02-27 10:23 | Pulmonology Progress Note ---
Assessment/Plan Assessment/Plan IMPRESSION: 1. COVID-19 pneumonia. 2. Hypertension. 3. CVA. 4. Severe hypoxemia. 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 Oxygen via non-rebreather mask. Code status DNR. I will follow carefully. Gaurav Melissa M.D. Subjective Interval Events: None new; doing very poorly; on NRBM Constitutional: Reports: no symptoms HEENT: Repors: no symptoms Respiratory: Reports: no symptoms Cardiovascular: Reports: no symptoms Gastrointestinal/Abdominal: Reports: no symptoms Allergies: Coded Allergies: No Known Allergies (Unverified , 02/24/20) Objective Last 24 Hour Vital Signs Date Time Temp Pulse Resp B/P (MAP) Pulse Ox O2 Delivery O2 Flow Rate FiO2 02/27/20 07:53 124 02/27/20 07:45 97.7 127 25 139/89 (106) 87 02/27/20 04:00 129 02/27/20 04:00 97.3 127 25 151/77 (101) 92 02/27/20 04:00 Non-Rebreather 15.0 02/27/20 00:00 Non-Rebreather 15.0 02/27/20 00:00 131 02/27/20 00:00 97.3 130 22 150/82 (104) 92 02/26/20 20:00 97.7 126 24 146/78 (100) 90 02/26/20 20:00 126 02/26/20 20:00 Non-Rebreather 15.0 02/26/20 16:00 99.5 124 24 149/67 (94) 90 02/26/20 16:00 Non-Rebreather 15.0 02/26/20 15:32 136 02/26/20 12:00 Non-Rebreather 15.0 02/26/20 12:00 99.0 102 23 151/69 (96) 90 02/26/20 11:40 116 Intake and Output 02/26/20 02/27/20 19:00 07:00 Intake Total 915 ml 655 ml Output Total 650 ml 450 ml Balance 265 ml 205 ml Intake Oral 30 ml IV Total 885 ml 655 ml Output Urine Total 650 ml 450 ml General Appearance: no acute distress HEENT: normocephalic Respiratory/Chest: chest wall non-tender Cardiovascular: normal peripheral pulses Abdomen: normal bowel sounds Microbiology Date/Time Source Procedure Growth Status 02/24/20 14:00 Blood Blood Culture - Preliminary NO GROWTH AFTER 48 HOURS Resulted 02/24/20 13:45 Blood Blood Culture - Preliminary NO GROWTH AFTER 48 HOURS Resulted 02/24/20 13:45 Nasopharynx Coronavirus COVID-19 PCR ([facility]) - Final Complete 02/24/20 13:45 Nasal Nares - Final Complete 02/24/20 13:45 Nasal Nares - Final Complete Laboratory Tests 02/26/20 10:40: White Blood Count 18.3#H, Red Blood Count 4.07L, Hemoglobin 12.6, Hematocrit 35.4L, Mean Corpuscular Volume 87, Mean Corpuscular Hemoglobin 31.0, Mean Corpuscular Hemoglobin Concent 35.6, Red Cell Distribution Width 9.4L, Platelet Count 289, Mean Platelet Volume 5.4L, Neutrophils (%) (Auto) , Lymphocytes (%) ( Auto) , Monocytes (%) (Auto) , Eosinophils (%) (Auto) , Basophils (%) (Auto) , Differential Total Cells Counted 100, Neutrophils % (Manual) 88H, Lymphocytes % (Manual) 7L, Monocytes % (Manual) 5, Eosinophils % (Manual) 0, Basophils % ( Manual) 0, Band Neutrophils 0, Platelet Estimate Adequate, Platelet Morphology Normal, Red Blood Cell Morphology Normal, Sodium Level 142, Potassium Level 4.8 , Chloride Level 107, Carbon Dioxide Level 18L, Anion Gap 17H, Blood Urea Nitrogen 27H, Creatinine 0.9, Estimat Glomerular Filtration Rate 59.0, Glucose Level 111H, Calcium Level 9.1, Magnesium Level 1.9, Pro-B-Type Natriuretic Peptide [id number] 02/27/20 08:36: Arterial Blood pH 7.370, Arterial Blood Partial Pressure CO2 37.6, Arterial Blood Partial Pressure O2 47.3*L, Arterial Blood HCO3 21.2L, Arterial Blood Oxygen Saturation 85.9*L, Arterial Blood Base Excess 3.6H, Isaac Test Positive 02/27/20 09:20: White Blood Count 24.1*H, Red Blood Count 4.28, Hemoglobin 13.1, Hematocrit 37.7 , Mean Corpuscular Volume 88, Mean Corpuscular Hemoglobin 30.7, Mean Corpuscular Hemoglobin Concent 34.8, Red Cell Distribution Width 10.0L, Platelet Count 307, Mean Platelet Volume 5.4L, Neutrophils (%) (Auto) , Lymphocytes (%) (Auto) , Monocytes (%) (Auto) , Eosinophils (%) (Auto) , Basophils (%) (Auto) , Neutrophils % (Manual) [Pending], Lymphocytes % (Manual) [Pending], Platelet Estimate [Pending], Platelet Morphology [Pending], Sodium Level 146H, Potassium Level 4.3, Chloride Level 112H, Carbon Dioxide Level 19L, Anion Gap 15, Blood Urea Nitrogen 30H, Creatinine 0.9, Estimat Glomerular Filtration Rate 59.0, Glucose Level 157H, Calcium Level 9.1 Current Medications Medications (Trade) Dose Ordered Sig/Ashley Route PRN Reason Start Time Stop Time Status Last Admin Dose Admin Acetaminophen (Tylenol) 650 mg EVERY 4 HOURS PRN ORAL fever GILL pain 02/24/20 17:00 03/25/20 16:59 Azithromycin (Zithromax) 250 mg DAILY ORAL 02/26/20 15:00 02/29/20 09:01 02/27/20 09:04 Ceftriaxone Sodium 1 gm/ Dextrose 55 ml @ 110 mls/hr Q24H IVPB 02/27/20 04:00 03/05/20 03:59 02/27/20 04:48 Dextrose/Sodium Chloride 1,000 ml @ 60 mls/hr [id number] IV 02/27/20 09:00 03/28/20 08:59 02/27/20 09:03 Heparin Sodium (Porcine) (Heparin 5000 units/ml) 5,000 units EVERY 12 HOURS SUBQ 02/26/20 09:00 04/11/20 08:59 02/26/20 23:11 Hydroxychloroquine Sulfate (Plaquenil) 200 mg TWICE A DAY ORAL 02/25/20 18:00 02/29/20 09:01 02/27/20 09:04 Levetiracetam (Keppra) 250 mg EVERY 12 HOURS ORAL 02/26/20 21:00 03/25/20 22:59 02/27/20 09:04 Magnesium Hydroxide (Mom) 30 ml DAILY PRN ORAL Constipation 02/24/20 23:00 03/25/20 22:59 Pregabalin (Lyrica) 75 mg THREE TIMES A DAY ORAL 02/24/20 23:00 03/25/20 22:59 Gaurav Melissa MD Feb 27, 2020 10:23
--- NOTE | 2020-02-27 11:08 | Diagnostic Imaging Report ---
Indication: Shortness of breath Technique: One view of the chest Comparison: 02/24/2020 Findings: Extensive bilateral airspace consolidation has worsened considerably since the previous study. There is especially severe on the right.. Correlate with clinical findings questionable small right pleural effusion again demonstrated. Impression: Over 3 days, interim marked worsening of previously demonstrated extensive airspace consolidation, right greater than left, likely pneumonia
--- NOTE | 2020-02-27 11:47 | Infectious Diseases Prog Note ---
Assessment/Plan Assessment/Plan antibiotics : ceftriaxone, azithromycin, hydroxychloroquine A 1. covid 19 pneumonia 2. leucocytosis increasing 3. hypertension 4. COPD 5. dementia 6. CVA P 1. continue hydroxychloroquine 2. d/c ceftriaxone, azithromycin 3. continue isolation Subjective ROS Limited/Unobtainable: Yes Allergies: Coded Allergies: No Known Allergies (Unverified , 02/24/20) Objective Vital Signs Last 24 Hour Vital Signs Date Time Temp Pulse Resp B/P (MAP) Pulse Ox O2 Delivery O2 Flow Rate FiO2 02/27/20 11:20 98.1 131 25 146/74 (98) 88 02/27/20 08:00 Non-Rebreather 15.0 02/27/20 08:00 97.7 127 25 139/89 (106) 87 02/27/20 07:53 124 02/27/20 07:45 97.7 127 25 139/89 (106) 87 02/27/20 04:00 129 02/27/20 04:00 97.3 127 25 151/77 (101) 92 02/27/20 04:00 Non-Rebreather 15.0 02/27/20 00:00 Non-Rebreather 15.0 02/27/20 00:00 131 02/27/20 00:00 97.3 130 22 150/82 (104) 92 02/26/20 20:00 97.7 126 24 146/78 (100) 90 02/26/20 20:00 126 02/26/20 20:00 Non-Rebreather 15.0 02/26/20 16:00 99.5 124 24 149/67 (94) 90 02/26/20 16:00 Non-Rebreather 15.0 02/26/20 15:32 136 02/26/20 12:00 Non-Rebreather 15.0 02/26/20 12:00 99.0 102 23 151/69 (96) 90 02/26/20 11:40 116 Height (Feet): 5 Height (Inches): 2.99 Weight (Pounds): 149 Microbiology Date/Time Source Procedure Growth Status 02/24/20 14:00 Blood Blood Culture - Preliminary NO GROWTH AFTER 48 HOURS Resulted 02/24/20 13:45 Blood Blood Culture - Preliminary NO GROWTH AFTER 48 HOURS Resulted 02/24/20 13:45 Nasopharynx Coronavirus COVID-19 PCR (STEPHENIE) - Final Complete 02/24/20 13:45 Nasal Nares - Final Complete 02/24/20 13:45 Nasal Nares - Final Complete Laboratory Tests Test 02/27/20 08:36 02/27/20 09:20 Arterial Blood pH 7.370 (7.350-7.450) Arterial Blood Partial Pressure CO2 37.6 mmHg (35.0-45.0) Arterial Blood Partial Pressure O2 47.3 mmHg (75.0-100.0) Arterial Blood HCO3 21.2 mmol/L (22.0-26.0) L Arterial Blood Oxygen Saturation 85.9 % (95-100) *L Arterial Blood Base Excess 3.6 (-2-2) H Isaac Test Positive White Blood Count 24.1 K/UL (4.8-10.8) *H Red Blood Count 4.28 M/UL (4.20-5.40) Hemoglobin 13.1 G/DL (12.0-16.0) Hematocrit 37.7 % (37.0-47.0) Mean Corpuscular Volume 88 FL (80-99) Mean Corpuscular Hemoglobin 30.7 PG (27.0-31.0) Mean Corpuscular Hemoglobin Concent 34.8 G/DL (32.0-36.0) Red Cell Distribution Width 10.0 % (11.6-14.8) L Platelet Count 307 K/UL (150-450) Mean Platelet Volume 5.4 FL (6.5-10.1) L Neutrophils (%) (Auto) % (45.0-75.0) Lymphocytes (%) (Auto) % (20.0-45.0) Monocytes (%) (Auto) % (1.0-10.0) Eosinophils (%) (Auto) % (0.0-3.0) Basophils (%) (Auto) % (0.0-2.0) Differential Total Cells Counted 100 Neutrophils % (Manual) 95 % (45-75) H Lymphocytes % (Manual) 2 % (20-45) L Monocytes % (Manual) 3 % (1-10) Eosinophils % (Manual) 0 % (0-3) Basophils % (Manual) 0 % (0-2) Band Neutrophils 0 % (0-8) Platelet Estimate Adequate Platelet Morphology Normal Red Blood Cell Morphology Normal Sodium Level 146 MMOL/L (136-145) H Potassium Level 4.3 MMOL/L (3.5-5.1) Chloride Level 112 MMOL/L (98-107) H Carbon Dioxide Level 19 MMOL/L (21-32) L Anion Gap 15 mmol/L (5-15) Blood Urea Nitrogen 30 mg/dL (7-18) H Creatinine 0.9 MG/DL (0.55-1.30) Estimat Glomerular Filtration Rate 59.0 mL/min (>60) Glucose Level 157 MG/DL (74-106) H Calcium Level 9.1 MG/DL (8.5-10.1) Current Medications Medications (Trade) Dose Ordered Sig/Ashley Route PRN Reason Start Time Stop Time Status Last Admin Dose Admin Acetaminophen (Tylenol) 650 mg EVERY 4 HOURS PRN ORAL fever GILL pain 02/24/20 17:00 03/25/20 16:59 Azithromycin (Zithromax) 250 mg DAILY ORAL 02/26/20 15:00 02/29/20 09:01 02/27/20 09:04 Ceftriaxone Sodium 1 gm/ Dextrose 55 ml @ 110 mls/hr Q24H IVPB 02/27/20 04:00 03/05/20 03:59 02/27/20 04:48 Dextrose/Sodium Chloride 1,000 ml @ 60 mls/hr [id number] IV 02/27/20 09:00 03/28/20 08:59 02/27/20 09:03 Heparin Sodium (Porcine) (Heparin 5000 units/ml) 5,000 units EVERY 12 HOURS SUBQ 02/26/20 09:00 04/11/20 08:59 02/26/20 23:11 Hydroxychloroquine Sulfate (Plaquenil) 200 mg TWICE A DAY ORAL 02/25/20 18:00 02/29/20 09:01 02/27/20 09:04 Levetiracetam (Keppra) 250 mg EVERY 12 HOURS ORAL 02/26/20 21:00 03/25/20 22:59 02/27/20 09:04 Magnesium Hydroxide (Mom) 30 ml DAILY PRN ORAL Constipation 02/24/20 23:00 03/25/20 22:59 Pregabalin (Lyrica) 75 mg THREE TIMES A DAY ORAL 4/10/20 23:00 03/25/20 22:59 Nicholas Hoang MD Feb 27, 2020 11:47
--- NOTE | 2020-02-27 12:00 | NUR ---
NURSE NOTES: The patient is 15L non-rebreather, and SpO2 is 86% with labored breathing. Called family member again and agreed for NGT placement. Soon Ok, the family member, agreed for NGT placement. Will put NGT per order. Will continue plan of care.
[2020-02-27] MEDS: D5 1/2NS w/KCL 10meq 1,000 ML IV SCH ×2 (13:23→22:04)
--- NOTE | 2020-02-27 14:00 | NUR ---
NURSE NOTES: The patient is still on 15L non-rebreather with sinus tachycardia and labored breathing. The patient's SpO2 saturation is 88%. Will insert NGT as the patient become little more stable. Will continue plan of care.
--- NOTE | 2020-02-27 14:11 | NUR ---
RADIOLOGY DEPT., CHEST X-RAY DONE.-P.DYE
--- NOTE | 2020-02-27 14:47 | General Progress Note ---
Assessment/Plan Problem List: (1) Tachycardia ICD Codes: R00.0 - Tachycardia, unspecified SNOMED: 3279994 (2) Respiratory distress ICD Codes: R06.03 - Acute respiratory distress SNOMED: 344818486 (3) COVID-19 virus detected ICD Codes: U07.1 - COVID-19 SNOMED: 637114839 Status: stable, progressing Assessment/Plan: cont current rx resp care o2 iv abx hydroxychloriquine and zithromax poor prognosis Subjective ROS Limited/Unobtainable: No Constitutional: Reports: malaise, weakness HEENT: Reports: no symptoms Cardiovascular: Reports: no symptoms Respiratory: Reports: cough, shortness of breath Gastrointestinal/Abdominal: Reports: no symptoms Genitourinary: Reports: no symptoms Neurologic/Psychiatric: Reports: anxiety, emotional problems Endocrine: Reports: no symptoms Hematologic/Lymphatic: Reports: anemia Allergies: Coded Allergies: No Known Allergies (Unverified , 02/24/20) All Systems: reviewed and negative except above Subjective tachycardic and tachypneic. on NRB. cxr with worsening osbaldo infiltrates. on iv abx and covid 19 rx. Objective Last 24 Hour Vital Signs Date Time Temp Pulse Resp B/P (MAP) Pulse Ox O2 Delivery O2 Flow Rate FiO2 02/27/20 12:00 136 02/27/20 12:00 Non-Rebreather 15.0 02/27/20 11:20 98.1 131 25 146/74 (98) 88 02/27/20 08:00 Non-Rebreather 15.0 02/27/20 08:00 97.7 127 25 139/89 (106) 87 02/27/20 07:53 124 02/27/20 07:45 97.7 127 25 139/89 (106) 87 02/27/20 04:00 129 02/27/20 04:00 97.3 127 25 151/77 (101) 92 02/27/20 04:00 Non-Rebreather 15.0 02/27/20 00:00 Non-Rebreather 15.0 02/27/20 00:00 131 02/27/20 00:00 97.3 130 22 150/82 (104) 92 02/26/20 20:00 97.7 126 24 146/78 (100) 90 02/26/20 20:00 126 02/26/20 20:00 Non-Rebreather 15.0 02/26/20 16:00 99.5 124 24 149/67 (94) 90 02/26/20 16:00 Non-Rebreather 15.0 02/26/20 15:32 136 Intake and Output 02/26/20 02/27/20 19:00 07:00 Intake Total 915 ml 655 ml Output Total 650 ml 450 ml Balance 265 ml 205 ml Intake Oral 30 ml IV Total 885 ml 655 ml Output Urine Total 650 ml 450 ml Laboratory Tests 02/27/20 08:36: Arterial Blood pH 7.370, Arterial Blood Partial Pressure CO2 37.6, Arterial Blood Partial Pressure O2 47.3*L, Arterial Blood HCO3 21.2L, Arterial Blood Oxygen Saturation 85.9*L, Arterial Blood Base Excess 3.6H, Isaac Test Positive 02/27/20 09:20: White Blood Count 24.1*H, Red Blood Count 4.28, Hemoglobin 13.1, Hematocrit 37.7 , Mean Corpuscular Volume 88, Mean Corpuscular Hemoglobin 30.7, Mean Corpuscular Hemoglobin Concent 34.8, Red Cell Distribution Width 10.0L, Platelet Count 307, Mean Platelet Volume 5.4L, Neutrophils (%) (Auto) , Lymphocytes (%) (Auto) , Monocytes (%) (Auto) , Eosinophils (%) (Auto) , Basophils (%) (Auto) , Differential Total Cells Counted 100, Neutrophils % ( Manual) 95H, Lymphocytes % (Manual) 2L, Monocytes % (Manual) 3, Eosinophils % ( Manual) 0, Basophils % (Manual) 0, Band Neutrophils 0, Platelet Estimate Adequate, Platelet Morphology Normal, Red Blood Cell Morphology Normal, Sodium Level 146H, Potassium Level 4.3, Chloride Level 112H, Carbon Dioxide Level 19L, Anion Gap 15, Blood Urea Nitrogen 30H, Creatinine 0.9, Estimat Glomerular Filtration Rate 59.0, Glucose Level 157H, Calcium Level 9.1 Height (Feet): 5 Height (Inches): 2.99 Weight (Pounds): 149 General Appearance: WD/WN, lethargic, confused Neck: supple Cardiovascular: normal peripheral pulses, regular rhythm, tachycardia Respiratory/Chest: rhonchi - bilaterally Abdomen: normal bowel sounds, non tender, soft, no organomegaly Edema: no edema noted Arm (L), no edema noted Arm (R), no edema noted Leg (L), no edema noted Leg (R), no edema noted Pedal (L), no edema noted Pedal (R), no edema noted Generalized Yoel Strong MD Feb 27, 2020 14:46
--- NOTE | 2020-02-27 15:00 | NUR ---
NURSE NOTES: NGT inserted per Dr. Webb's order and family member's(Soon Ok) agreement. Dr. Webb ordered stat KUB for NGT placement. Called X-ray department for stat order. The patient is still on 15L non-rebreather, and oxygen saturation is 85%. Will checked the placement and administer medication per order. Will closely monitor the patient. Will continue plan of care.
--- NOTE | 2020-02-27 16:30 | NUR ---
NURSE NOTES: NGT placement checked and got bended. Tried to fix the bending of NGT but unsuccessful. Unable to try again due to desaturation episode to 70s%. Will try NGT placement again after the patient got stabilized. Will continue plan of care.
--- NOTE | 2020-02-27 17:30 | NUR ---
NURSE NOTES: Unable to try NGT at this time due to desaturation episode. The patient is still on 15L non-rebreather, and oxygen saturation is 85%. Will closely monitor the patient.
--- NOTE | 2020-02-27 17:31 | NUR ---
CASE MANAGEMENT: REVIEW 89 YEAR OLD FEMALE BIBA FROM [facility] CC: RESP DISTRESS SI: COVID-19 DETECTED . PNA T 101.0 HR 92 RR 22 BP 152/86 SAT 94% NON-REBREATHER FLOW RATE 15.0 WBC 24.1 NA 146 GLUCOSE 157 IS: NS IVF BOLUS X1 AZITHROMYCIN 500MG PO X1 PLAQUENIL 400MG PO TWICE A DAY KEPPRA IV X1 PATIENT ADMITTED TO STEP DOWN UNIT 02/24/2020 DCP: [facility]
--- NOTE | 2020-02-27 19:00 | NUR ---
NURSE NOTES: Restraint off at this time. will continue to assess pt and monitor vital signs, medical devices, bed alarm, and other safety issues to determine need for restraints.
--- NOTE | 2020-02-27 19:00 | NUR ---
NURSE NOTES: Discontinued bilateral soft wrist restraints per order. The patient's skin and circulation are intact. Will continue plan of care.
--- NOTE | 2020-02-27 19:20 | NUR ---
NURSE NOTES: Pt report received from CAROLINE MEDRANO. pt alert and oriented times 1, no acute neuro abnormalities. 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 pt is on non rebreather sating at 88% O2, Doctors on the case are aware of O2 saturation. charge nurse Kasia Cardoza aware of O2.. pt bed is low, locked, armed, call light within reach. bed rails up times 3, will follow plan of care.
--- NOTE | 2020-02-27 19:30 | NUR ---
HAND-OFF: Report given to MITCHELL Cross. The patient is resting on the bed. The patient's bed in the lowest position, call light in reach, and fall, aspiration, and seizure precaution reinforced. IV site intact and patent. The patient is on 15L non-rebreather mask per order. Endorsed plan of care.
--- NOTE | 2020-02-27 20:28 | NUR ---
NURSE NOTES: PO KEPPRA MED on hold until NG tube is placed, and placement confirmed with imagining.
--- NOTE | 2020-02-27 23:25 | NUR ---
NURSE NOTES: Called doctor Tracey miller line. left a message. stated from start of shift pt HR has been 135- 145. current Vital signs are BP 155/70 O2 is 90%. temp is 97.7 F Aux. awaiting call back awaiting new orders.
[2020-02-28] VITALS: BP 158/72
--- NOTE | 2020-02-28 00:15 | History and Physical Report ---
DATE OF ADMISSION: 02/24/2020 This is a late entry for a visit done on 02/26/2020. HISTORY OF PRESENT ILLNESS: This is an 89-year-old female with a history of hypertensive heart disease, atherosclerotic cardiovascular disease, COPD who was transferred from a [facility] facility with complaints of hypoxemia and shortness of breath. Patient previously tested positive for COVID-19 and otherwise been stable until recently when she became progressively more short of breath and hypoxic. On evaluation in the emergency room, patient was hypothermic and hypoxic. Eventually she was placed on a non-rebreather 15 liters with saturations in the mid 90s. Laboratories showed a normal white count, pO2 of 47. X-ray showed diffuse extensive interstitial airspace infiltrates. Patient has been started on supplemental oxygen, treatment for COVID-19, and is now admitted to a monitored bed. She is unable to provide any history. PAST MEDICAL HISTORY: As above. PAST SURGICAL HISTORY: Unknown. CURRENT MEDICATIONS: Reconciled and reviewed. ALLERGIES: None. FAMILY HISTORY: Unknown. SOCIAL HISTORY: There is no known history of tobacco, ethanol, or drugs. REVIEW OF SYSTEMS: Unobtainable as patient is confused. PHYSICAL EXAMINATION: VITAL SIGNS: Temperature was 99, pulse 102, respirations 23, blood pressure 151/69. GENERAL: Patient is an elderly female, currently on non-rebreather, thin, frail. NECK: Supple. HEART: Regular rate and rhythm. LUNGS: Few rhonchi. ABDOMEN: Soft, nontender, nondistended. EXTREMITIES: Without clubbing, cyanosis, or edema. LABORATORIES: Noted. ASSESSMENT: This is an elderly female with a history of atherosclerotic cardiovascular disease, hypertension, COPD admitted with complaints of respiratory failure secondary to COVID-19 pneumonia. PLAN: Hydroxychloroquine and azithromycin. Cardiology will be asked to monitor for arrhythmias. Pulmonary and Infectious Disease consultations have been obtained. Patient's prognosis is poor. She is a DNR per advance directive. Yoel Strong M.D. DR: CHERRY JOB#: [id number] CC:
[2020-02-28] MEDS ORDERED: levETIRAcetam 500mg/5ml Liquid NG SCH (00:30)
[2020-02-28] MEDS ORDERED: LORazepam Inj 2mg/ml 1ml IV PRN (00:30)
--- NOTE | 2020-02-28 00:34 | NUR ---
NURSE NOTES: Called Doctor Tracey to return call. left a message in urgent line. awaiting call back. awaiting new orders.
--- NOTE | 2020-02-28 01:45 | NUR ---
NURSE NOTES: NG tube placed in Right nostril. 60cc at R naris. WILL NOT BE USED UNTIL CONFIRMED IMAGING/ KUB.
--- NOTE | 2020-02-28 01:55 | NUR ---
NURSE NOTES: KEPPRA 500MG 5 ML retuned to Pyxis. Med not given until NG TUBE placement.
--- NOTE | 2020-02-28 03:45 | Progress Note ---
DATE: 02/27/2020 CARDIOLOGY PROGRESS NOTE SUBJECTIVE: The patient's condition is deteriorating. As noted on chest x-ray, her pulmonary infiltrates have worsened. She remains increasingly hypoxic requiring a non-rebreather mask. In addition, tachycardia and tachypnea persists. PHYSICAL EXAMINATION: LUNGS: Bilateral breath sounds. Rhonchi. Rales. CARDIAC: Regular rhythm. Rapid rate. Normal S1, S2. Monitor, sinus tachycardia. ABDOMEN: Soft. EXTREMITIES: No edema. LABORATORY DATA: Sodium 146, potassium 4.3, bicarb 19, BUN 30, creatinine 0.9, glucose 157. White count is above 18,000. IMPRESSION: 1. Worsening COVID-19 pneumonia. 2. Pulmonary infiltrates and hypoxia. 3. Sepsis. 4. Dehydration. 5. . 6. Metabolic acidosis. 7. Tachypnea and sinus tachycardia. 8. Critical and guarded. PLAN: 1. Anti-COVID medication regimen per Infectious Disease alliance consultant. 2. Hypotonic IV fluid hydration. 3. Respiratory hygiene and oxygenation. 4. DVT prophylaxis. 5. Anxiolytics. 6. DNR and DNI per advance directives. Milton Webb M.D. DR: CHARBEL JOB#: [id number] CC:
[2020-02-28 04:00] VITALS: BP 150/76
--- NOTE | 2020-02-28 04:12 | Diagnostic Imaging Report ---
EXAM: XR Abdomen, 1 View CLINICAL HISTORY: NGT TECHNIQUE: Frontal supine view of the abdomen/pelvis. COMPARISON: No relevant prior studies available. FINDINGS: NGT terminates in the stomach.
--- NOTE | 2020-02-28 05:16 | NUR ---
NURSE NOTES: called Jean RT to assess pt. jean RT fixed Pulse OX, assessed pt.
--- NOTE | 2020-02-28 06:42 | NUR ---
NURSE NOTES: spoke to Doctor Miller in person. stated how NG tube is now in and confirmed via KUB/ imagining. also stated how RN was trying to get in contact with Doctor nano and requested med for pts consistent elevated heart rate of 130 - 150 and how pts O2 sat has been 85% O2 - 90% O2. doctor miller is aware.
--- NOTE | 2020-02-28 07:20 | NUR ---
HAND-OFF: Report given to NORMAN BAKERY PRODUCTS CHECKER.
--- NOTE | 2020-02-28 07:21 | NUR ---
NURSE NOTES: Late entry: PT and report received from Tay Vidal RN; received on nonrebreather 15L, saturating at 88%; director of cardiac cath lab shows ST 120; has R-NGT for meds only; code status DNR/DNI, morris intact at lowest position draining patent; PIV R-hand 20g and R-hand 22g intact patent flushes well no S/S of infiltrate noted infusing D5 1/2NS 10mEq KCl @ 100cc/hr; will continue to monitor PT
[2020-02-28 08:00] VITALS: BP 140/90
[2020-02-28] MEDS: levETIRAcetam 500mg/5ml Liquid NG SCH ×2 (09:46→20:39)
[2020-02-28] MEDS: D5 1/2NS w/KCL 10meq 1,000 ML IV SCH (09:46)
[2020-02-28] MEDS: Lyrica 75mg cap ORAL SCH ×3 (09:46→18:39)
[2020-02-28] MEDS: Heparin 5000 units/ml inj SUBQ SCH ×2 (09:47→20:39)
--- NOTE | 2020-02-28 10:40 | NUR ---
NURSE NOTES: Late entry: PT daughter called updates given, considering if PT condition deteriorates to place PT on comfort measures, would like to speak with a MD. Will relay message to MD's on case, and continue to monitor PT.
--- NOTE | 2020-02-28 10:51 | Infectious Diseases Prog Note ---
Assessment/Plan Assessment/Plan antibiotics : hydroxychloroquine A 1. covid 19 pneumonia test + 4.10.20 2. leucocytosis increasing 3. hypertension 4. COPD 5. dementia 6. CVA P 1. d/c hydroxychloroquine 2. continue isolation Subjective ROS Limited/Unobtainable: Yes Allergies: Coded Allergies: No Known Allergies (Unverified , 02/24/20) Objective Vital Signs Last 24 Hour Vital Signs Date Time Temp Pulse Resp B/P (MAP) Pulse Ox O2 Delivery O2 Flow Rate FiO2 02/28/20 08:00 145 02/28/20 08:00 97.3 141 22 140/90 (107) 87 02/28/20 04:00 Non-Rebreather 15.0 02/28/20 04:00 152 02/28/20 04:00 97.5 140 26 150/76 (100) 90 02/28/20 00:00 Non-Rebreather 15.0 02/28/20 00:00 139 02/28/20 00:00 97.7 130 26 158/72 (100) 89 02/27/20 20:00 Non-Rebreather 15.0 02/27/20 20:00 147 02/27/20 20:00 97.9 135 26 155/76 (102) 90 02/27/20 16:00 97.7 140 25 147/80 (102) 88 02/27/20 16:00 Non-Rebreather 15.0 02/27/20 16:00 135 02/27/20 15:30 97.7 140 25 147/80 (102) 88 02/27/20 12:00 136 02/27/20 12:00 98.1 131 25 146/74 (98) 88 02/27/20 12:00 Non-Rebreather 15.0 02/27/20 11:20 98.1 131 25 146/74 (98) 88 Height (Feet): 5 Height (Inches): 2.99 Weight (Pounds): 149 Current Medications Medications (Trade) Dose Ordered Sig/Ashley Route PRN Reason Start Time Stop Time Status Last Admin Dose Admin Acetaminophen (Tylenol) 650 mg EVERY 4 HOURS PRN ORAL fever GILL pain 02/24/20 17:00 03/25/20 16:59 Dextrose/ Electrolytes 1,000 ml @ 100 mls/hr Q10H IV 02/27/20 13:00 03/28/20 12:59 02/28/20 09:46 Heparin Sodium (Porcine) (Heparin 5000 units/ml) 5,000 units EVERY 12 HOURS SUBQ 02/26/20 09:00 04/11/20 08:59 02/28/20 09:47 Hydroxychloroquine Sulfate (Plaquenil) 200 mg TWICE A DAY ORAL 02/25/20 18:00 02/29/20 09:01 02/28/20 09:46 Levetiracetam (Keppra) 250 mg Q12HR NG 02/28/20 09:00 03/29/20 08:59 02/28/20 09:46 Lorazepam (Ativan 2mg/ml 1ml) 0.5 mg Q6H PRN IV For Anxiety 02/28/20 00:30 03/06/20 00:29 Magnesium Hydroxide (Mom) 30 ml DAILY PRN ORAL Constipation 02/24/20 23:00 03/25/20 22:59 Pregabalin (Lyrica) 75 mg THREE TIMES A DAY ORAL 02/24/20 23:00 03/25/20 22:59 02/28/20 09:46 Nicholas Hoang MD Feb 28, 2020 10:51
--- NOTE | 2020-02-28 11:10 | NUR ---
RD ASSESSMENT & RECOMMENDATIONS SEE CARE ACTIVITY FOR COMPLETE ASSESSMENT DAILY ESTIMATED NEEDS: Needs based on Cardiac, pulmonary 56kg abw 25-30 kcals/kg 9006-7572 total kcals 1-1.5 g protein/kg 56-84 g total protein 20-25 mL/kg 3313-1287 total fluid mLs NUTRITION DIAGNOSIS: Altered nutrition related lab values r/t clinical status as evidenced by elev WBC (24.1*), elev Na (146), elev BUN (30). (CURRENT DIET: ERICK ms chopped) PO DIET RECOMMENDATIONS--->>> Liberalized Regular diet w/ current poor po intake ENTERAL NUTRITION RECOMMENDATIONS: IF PART OF POC-> Rec Jevity 1.2 goal of 50ml/hr x24 hrs to provide 1200ml, 1440 kcal, 67g pro, 968ml free H2O - If non oral feeds are part of POC, rec to obtain GI access, start JEVITY 1.2 @20ml/hr for 6 hrs. Advance as tolerated 10ml/hr q4-6 hrs to goal - HOB over 30degrees/ Flush per MD With elev BG, rec Glucerna 1.2 @50ml/r x24 hrs (1440 kcal, 72g pro) ADDITIONAL RECOMMENDATIONS: 1) Obtain calibrated bed scale wts 2) TF's recs as above of part of POC 3) Maintain D5 w/ poor po
--- NOTE | 2020-02-28 11:12 | Pulmonology Progress Note ---
Assessment/Plan Assessment/Plan IMPRESSION: 1. COVID-19 pneumonia. 2. Hypertension. 3. CVA. 4. Severe hypoxemia. On non-rebreather mask DISCUSSION: Continue broad-spectrum antibiotics. head of physics. Oxygen via non-rebreather mask. NG in place for medications Code status DNR. I will follow carefully. Gaurav Melissa M.D. Subjective Interval Events: None new; on NRBM Constitutional: Reports: no symptoms HEENT: Repors: no symptoms Respiratory: Reports: no symptoms Cardiovascular: Reports: no symptoms Gastrointestinal/Abdominal: Reports: no symptoms Allergies: Coded Allergies: No Known Allergies (Unverified , 02/24/20) Objective Last 24 Hour Vital Signs Date Time Temp Pulse Resp B/P (MAP) Pulse Ox O2 Delivery O2 Flow Rate FiO2 02/28/20 11:03 97.5 02/28/20 08:00 145 02/28/20 08:00 Non-Rebreather 15.0 02/28/20 08:00 97.3 141 22 140/90 (107) 87 02/28/20 04:00 Non-Rebreather 15.0 02/28/20 04:00 152 02/28/20 04:00 97.5 140 26 150/76 (100) 90 02/28/20 00:00 Non-Rebreather 15.0 02/28/20 00:00 139 02/28/20 00:00 97.7 130 26 158/72 (100) 89 02/27/20 20:00 Non-Rebreather 15.0 02/27/20 20:00 147 02/27/20 20:00 97.9 135 26 155/76 (102) 90 02/27/20 16:00 97.7 140 25 147/80 (102) 88 02/27/20 16:00 Non-Rebreather 15.0 02/27/20 16:00 135 02/27/20 15:30 97.7 140 25 147/80 (102) 88 02/27/20 12:00 136 02/27/20 12:00 98.1 131 25 146/74 (98) 88 02/27/20 12:00 Non-Rebreather 15.0 02/27/20 11:20 98.1 131 25 146/74 (98) 88 Intake and Output 02/27/20 02/28/20 19:00 07:00 Intake Total 1100 ml Output Total 700 ml 600 ml Balance -700 ml 500 ml IV Total 1100 ml Output Urine Total 700 ml 600 ml General Appearance: no acute distress HEENT: normocephalic Respiratory/Chest: chest wall non-tender Cardiovascular: normal peripheral pulses Abdomen: normal bowel sounds Current Medications Medications (Trade) Dose Ordered Sig/Ashley Route PRN Reason Start Time Stop Time Status Last Admin Dose Admin Acetaminophen (Tylenol) 650 mg EVERY 4 HOURS PRN ORAL fever GILL pain 02/24/20 17:00 03/25/20 16:59 Dextrose/ Electrolytes 1,000 ml @ 100 mls/hr Q10H IV 02/27/20 13:00 03/28/20 12:59 02/28/20 09:46 Heparin Sodium (Porcine) (Heparin 5000 units/ml) 5,000 units EVERY 12 HOURS SUBQ 02/26/20 09:00 04/11/20 08:59 02/28/20 09:47 Hydroxychloroquine Sulfate (Plaquenil) 200 mg TWICE A DAY ORAL 02/25/20 18:00 02/29/20 09:01 02/28/20 09:46 Levetiracetam (Keppra) 250 mg Q12HR NG 02/28/20 09:00 03/29/20 08:59 02/28/20 09:46 Lorazepam (Ativan 2mg/ml 1ml) 0.5 mg Q6H PRN IV For Anxiety 02/28/20 00:30 03/06/20 00:29 Magnesium Hydroxide (Mom) 30 ml DAILY PRN ORAL Constipation 02/24/20 23:00 03/25/20 22:59 Pregabalin (Lyrica) 75 mg THREE TIMES A DAY ORAL 02/24/20 23:00 03/25/20 22:59 02/28/20 09:46 Gaurav Melissa MD Feb 28, 2020 11:12
[2020-02-28 12:00] VITALS: BP 149/76
--- NOTE | 2020-02-28 12:02 | NUR ---
NURSE NOTES: MD Shin made rounds, updates given, informed MD that PT daughter would like to speak with an MD on the case, no new orders given.
--- NOTE | 2020-02-28 12:57 | General Progress Note ---
Assessment/Plan Problem List: (1) Tachycardia ICD Codes: R00.0 - Tachycardia, unspecified SNOMED: 1253452 (2) Respiratory distress ICD Codes: R06.03 - Acute respiratory distress SNOMED: 291690301 (3) COVID-19 virus detected ICD Codes: U07.1 - COVID-19 SNOMED: 463859364 Status: stable, progressing Assessment/Plan: cont current rx resp care and suctioning o2 iv abx hydroxychloriquine and zithromax poor prognosis Subjective ROS Limited/Unobtainable: Yes Constitutional: Reports: malaise, weakness HEENT: Reports: no symptoms Cardiovascular: Reports: no symptoms Respiratory: Reports: cough, shortness of breath Gastrointestinal/Abdominal: Reports: difficulty swallowing Genitourinary: Reports: no symptoms Neurologic/Psychiatric: Reports: pre-existing deficit Endocrine: Reports: no symptoms Hematologic/Lymphatic: Reports: no symptoms Allergies: Coded Allergies: No Known Allergies (Unverified , 02/24/20) All Systems: reviewed and negative except above Subjective tachycardic and tachypneic. on NRB. cxr with worsening osbaldo infiltrates. on iv abx and covid 19 rx. difficult to arouse Objective Last 24 Hour Vital Signs Date Time Temp Pulse Resp B/P (MAP) Pulse Ox O2 Delivery O2 Flow Rate FiO2 02/28/20 12:00 Non-Rebreather 15.0 02/28/20 11:03 97.5 02/28/20 08:00 145 02/28/20 08:00 Non-Rebreather 15.0 02/28/20 08:00 97.3 141 22 140/90 (107) 87 02/28/20 04:00 Non-Rebreather 15.0 02/28/20 04:00 152 02/28/20 04:00 97.5 140 26 150/76 (100) 90 02/28/20 00:00 Non-Rebreather 15.0 02/28/20 00:00 139 02/28/20 00:00 97.7 130 26 158/72 (100) 89 02/27/20 20:00 Non-Rebreather 15.0 02/27/20 20:00 147 02/27/20 20:00 97.9 135 26 155/76 (102) 90 02/27/20 16:00 97.7 140 25 147/80 (102) 88 02/27/20 16:00 Non-Rebreather 15.0 02/27/20 16:00 135 02/27/20 15:30 97.7 140 25 147/80 (102) 88 Intake and Output 02/27/20 02/28/20 19:00 07:00 Intake Total 1193.333 ml Output Total 700 ml 600 ml Balance -700 ml 593.333 ml IV Total 1193.333 ml Output Urine Total 700 ml 600 ml Height (Feet): 5 Height (Inches): 2.99 Weight (Pounds): 149 General Appearance: WD/WN, lethargic, confused Neck: supple Cardiovascular: regular rhythm Respiratory/Chest: lungs clear, normal breath sounds, no respiratory distress, accessory muscle use Abdomen: normal bowel sounds, non tender, soft, no organomegaly Edema: no edema noted Arm (L), no edema noted Arm (R), no edema noted Leg (L), no edema noted Leg (R), no edema noted Pedal (L), no edema noted Pedal (R), no edema noted Generalized Yoel Strong MD Feb 28, 2020 12:57
[2020-02-28 16:00] VITALS: BP 148/74
--- NOTE | 2020-02-28 17:13 | NUR ---
CASE MANAGEMENT: REVIEW SI: COVID-19 DETECTED . PNA T 97.5 HR 141 RR 26 BP 158/72 SAT 89% NON-REBREATHER FLOW RATE 15.0 BLOOD CX PENDING IS: KEPPRA 250MG NGT Q12HR PLAQUENIL 200MG NGT TWICE A DAY TYLENOL 650MG ORAL Q4HR PRN STEP DOWN UNIT STATUS DCP: PATIENT IS FROM [facility]
--- NOTE | 2020-02-28 19:10 | NUR ---
NURSE NOTES: Pt report received from Alex ZIGZAG APPLIQUER. Pt is alert and oriented times 1. pt is on non rebreather sating at 88% to 90% O2 doctors on case are aware. pt is on residential monitor showing ST, 130. doctors on the case are aware. pt bed is low, locked, armed, bed rails up times 3, call light within reach. will follow plan of care.
--- NOTE | 2020-02-28 19:27 | NUR ---
HAND-OFF: Report and PT given to Tay Vidal RN.
[2020-02-28 20:00] VITALS: BP 152/73
[2020-02-29] VITALS: BP 145/70
--- NOTE | 2020-02-29 01:14 | Progress Note ---
DATE: 02/28/2020 CARDIOLOGY PROGRESS NOTE SUBJECTIVE: The patient has congestion. Respiratory distress. Rapid heart rate. Remaining on a non-rebreather mask, poorly responsive. NG tube is in place for medication administration. PHYSICAL EXAMINATION: VITAL SIGNS: Afebrile, blood pressure 140/90, pulse 140, respirations 22, oxygen saturation on a non-rebreather mask high 80s. LUNGS: Coarse breath sounds. Rhonchi. Accessory muscle use. CARDIAC: Regular rhythm. Rapid rate. ABDOMEN: Soft. EXTREMITIES: Trace edema. LABORATORY DATA: White count 24, hemoglobin 13. Abdominal x-ray today revealed correct placement of the NG tube. IMPRESSION: 1. COVID-19 pneumonia with respiratory failure and leukocytosis. 2. Cerebrovascular disease with dementia. 3. Metabolic and toxic encephalopathies. 4. Dysphagia. 5. No signs of QTc prolongation. PLAN: 1. Isolation. 2. Complete hydroxychloroquine. 3. Respiratory hygiene and bronchodilators. 4. Remains critical with guarded prognosis. Milton Webb M.D. DR: NEGRA JOB#: [id number] CC:
[2020-02-29 04:00] VITALS: BP 145/70
--- NOTE | 2020-02-29 07:20 | NUR ---
HAND-OFF: Report given to MIN RN.
--- NOTE | 2020-02-29 07:20 | NUR ---
NURSE NOTES: Received report from Tay MEDRANO. Pt in bed closed her eyes, but responsive to strong pain stimuli. No c/o pain on facial pain scale. On 15LPM via non-rebreather mask, sating with 84-85%. Made Dr. Melissa who is present in the unit aware. IV site in Right FA 22G SL, Right hand SL swelling. Will reinsert new IV when available. Bed in lowest position and locked. Call light within easy reach. NG-tube intact and patent. F/C intact and patent. HOB elevated with greater than 45 degree. Will continue to plan of care.
[2020-02-29 08:00] VITALS: BP 137/65
[2020-02-29] MEDS: levETIRAcetam 500mg/5ml Liquid NG SCH ×2 (08:32→21:08)
[2020-02-29] MEDS: Lyrica 75mg cap ORAL SCH ×3 (08:32→17:08)
[2020-02-29] MEDS: Heparin 5000 units/ml inj SUBQ SCH ×2 (08:33→21:09)
--- NOTE | 2020-02-29 10:56 | Infectious Diseases Prog Note ---
Assessment/Plan Assessment/Plan antibiotics : hydroxychloroquine A 1. covid 19 pneumonia test + 4.10.20 2. leucocytosis increasing 3. hypertension 4. COPD 5. dementia 6. CVA P 1. continue hydroxychloroquine 2 more days 2. continue isolation Subjective ROS Limited/Unobtainable: Yes Allergies: Coded Allergies: No Known Allergies (Unverified , 02/24/20) Objective Vital Signs Last 24 Hour Vital Signs Date Time Temp Pulse Resp B/P (MAP) Pulse Ox O2 Delivery O2 Flow Rate FiO2 02/29/20 08:00 98.1 140 24 137/65 (89) 85 02/29/20 08:00 Non-Rebreather 15.0 02/29/20 08:00 143 02/29/20 04:00 97.6 132 24 145/70 (95) 86 02/29/20 04:00 Non-Rebreather 15.0 02/29/20 04:00 141 02/29/20 00:00 Non-Rebreather 15.0 02/29/20 00:00 143 02/29/20 00:00 97.9 143 24 145/70 (95) 85 02/28/20 20:00 97.8 140 25 152/73 (99) 88 02/28/20 20:00 Non-Rebreather 15.0 02/28/20 20:00 141 02/28/20 19:55 98.1 02/28/20 16:00 98.1 139 24 148/74 (98) 85 02/28/20 16:00 136 02/28/20 16:00 Non-Rebreather 15.0 02/28/20 12:00 131 02/28/20 12:00 98.2 137 24 149/76 (100) 87 02/28/20 12:00 Non-Rebreather 15.0 Height (Feet): 5 Height (Inches): 2.99 Weight (Pounds): 134 Current Medications Medications (Trade) Dose Ordered Sig/Ashley Route PRN Reason Start Time Stop Time Status Last Admin Dose Admin Acetaminophen (Tylenol) 650 mg EVERY 4 HOURS PRN ORAL fever GILL pain 02/24/20 17:00 03/25/20 16:59 Heparin Sodium (Porcine) (Heparin 5000 units/ml) 5,000 units EVERY 12 HOURS SUBQ 02/26/20 09:00 04/11/20 08:59 02/29/20 08:33 Hydroxychloroquine Sulfate (Plaquenil) 200 mg TWICE A DAY ORAL 02/25/20 18:00 03/02/20 17:59 02/29/20 08:32 Levetiracetam (Keppra) 250 mg Q12HR NG 02/28/20 09:00 03/29/20 08:59 02/29/20 08:32 Lorazepam (Ativan 2mg/ml 1ml) 0.5 mg Q6H PRN IV For Anxiety 02/28/20 00:30 03/06/20 00:29 Magnesium Hydroxide (Mom) 30 ml DAILY PRN ORAL Constipation 02/24/20 23:00 03/25/20 22:59 Pregabalin (Lyrica) 75 mg THREE TIMES A DAY ORAL 02/24/20 23:00 03/25/20 22:59 02/29/20 08:32 Nicholas Hoang MD Feb 29, 2020 10:56
--- NOTE | 2020-02-29 11:46 | Pulmonology Progress Note ---
Assessment/Plan Assessment/Plan IMPRESSION: 1. COVID-19 pneumonia. 2. Hypertension. 3. CVA. 4. Severe hypoxemia. On non-rebreather mask DISCUSSION: Continue broad-spectrum antibiotics. case monitor. Oxygen via non-rebreather mask. NG in place for medications Code status DNR. Initially daughter Soon was asking for full code but I explained the risk/benefits of CPR to her after which she retained DNR status I will follow carefully. Gaurav Melissa M.D. Subjective Interval Events: Discussed with noraioly in detail Constitutional: Reports: no symptoms HEENT: Repors: no symptoms Respiratory: Reports: no symptoms Cardiovascular: Reports: no symptoms Allergies: Coded Allergies: No Known Allergies (Unverified , 02/24/20) Objective Last 24 Hour Vital Signs Date Time Temp Pulse Resp B/P (MAP) Pulse Ox O2 Delivery O2 Flow Rate FiO2 02/29/20 08:00 98.1 140 24 137/65 (89) 85 02/29/20 08:00 Non-Rebreather 15.0 02/29/20 08:00 143 02/29/20 04:00 97.6 132 24 145/70 (95) 86 02/29/20 04:00 Non-Rebreather 15.0 02/29/20 04:00 141 02/29/20 00:00 Non-Rebreather 15.0 02/29/20 00:00 143 02/29/20 00:00 97.9 143 24 145/70 (95) 85 02/28/20 20:00 97.8 140 25 152/73 (99) 88 02/28/20 20:00 Non-Rebreather 15.0 02/28/20 20:00 141 02/28/20 19:55 98.1 02/28/20 16:00 98.1 139 24 148/74 (98) 85 02/28/20 16:00 136 02/28/20 16:00 Non-Rebreather 15.0 02/28/20 12:00 131 02/28/20 12:00 98.2 137 24 149/76 (100) 87 02/28/20 12:00 Non-Rebreather 15.0 Intake and Output 02/28/20 02/29/20 19:00 07:00 Intake Total 580.000 ml Output Total 500 ml 500 ml Balance 80.000 ml -500 ml IV Total 480.000 ml Other 100 ml Output Urine Total 500 ml 500 ml General Appearance: no acute distress HEENT: normocephalic Respiratory/Chest: chest wall non-tender, lungs clear Cardiovascular: normal peripheral pulses, normal rate Abdomen: normal bowel sounds Current Medications Medications (Trade) Dose Ordered Sig/Ashley Route PRN Reason Start Time Stop Time Status Last Admin Dose Admin Acetaminophen (Tylenol) 650 mg EVERY 4 HOURS PRN ORAL fever GILL pain 02/24/20 17:00 03/25/20 16:59 Heparin Sodium (Porcine) (Heparin 5000 units/ml) 5,000 units EVERY 12 HOURS SUBQ 02/26/20 09:00 04/11/20 08:59 02/29/20 08:33 Hydroxychloroquine Sulfate (Plaquenil) 200 mg TWICE A DAY ORAL 02/25/20 18:00 03/02/20 17:59 02/29/20 08:32 Levetiracetam (Keppra) 250 mg Q12HR NG 02/28/20 09:00 03/29/20 08:59 02/29/20 08:32 Lorazepam (Ativan 2mg/ml 1ml) 0.5 mg Q6H PRN IV For Anxiety 02/28/20 00:30 03/06/20 00:29 Magnesium Hydroxide (Mom) 30 ml DAILY PRN ORAL Constipation 02/24/20 23:00 03/25/20 22:59 Pregabalin (Lyrica) 75 mg THREE TIMES A DAY ORAL 02/24/20 23:00 03/25/20 22:59 02/29/20 08:32 Gaurav Melissa MD Feb 29, 2020 11:46
[2020-02-29 12:00] VITALS: BP 131/61
--- NOTE | 2020-02-29 13:21 | General Progress Note ---
Assessment/Plan Problem List: (1) Tachycardia ICD Codes: R00.0 - Tachycardia, unspecified SNOMED: 2760610 (2) Respiratory distress ICD Codes: R06.03 - Acute respiratory distress SNOMED: 662562939 (3) COVID-19 virus detected ICD Codes: U07.1 - COVID-19 SNOMED: 251061469 Status: stable, progressing Assessment/Plan: cont current rx resp care and suctioning o2 via nrb iv abx hydroxychloriquine and zithromax consider diuresis poor prognosis Subjective ROS Limited/Unobtainable: Yes Constitutional: Reports: malaise, weakness HEENT: Reports: no symptoms Cardiovascular: Reports: no symptoms Respiratory: Reports: shortness of breath Gastrointestinal/Abdominal: Reports: difficulty swallowing Genitourinary: Reports: no symptoms Neurologic/Psychiatric: Reports: no symptoms Endocrine: Reports: no symptoms Hematologic/Lymphatic: Reports: no symptoms Allergies: Coded Allergies: No Known Allergies (Unverified , 02/24/20) All Systems: reviewed and negative except above Subjective tachycardic and tachypneic. on NRB. cxr with worsening osbaldo infiltrates. on iv abx and covid 19 rx. difficult to arouse seems slightly less sob compared to yesterday. no fevers. Objective Last 24 Hour Vital Signs Date Time Temp Pulse Resp B/P (MAP) Pulse Ox O2 Delivery O2 Flow Rate FiO2 02/29/20 12:00 Non-Rebreather 15.0 02/29/20 12:00 97.8 134 28 131/61 (84) 85 02/29/20 11:36 136 02/29/20 08:00 98.1 140 24 137/65 (89) 85 02/29/20 08:00 Non-Rebreather 15.0 02/29/20 08:00 143 02/29/20 04:00 97.6 132 24 145/70 (95) 86 02/29/20 04:00 Non-Rebreather 15.0 02/29/20 04:00 141 02/29/20 00:00 Non-Rebreather 15.0 02/29/20 00:00 143 02/29/20 00:00 97.9 143 24 145/70 (95) 85 02/28/20 20:00 97.8 140 25 152/73 (99) 88 02/28/20 20:00 Non-Rebreather 15.0 02/28/20 20:00 141 02/28/20 19:55 98.1 02/28/20 16:00 98.1 139 24 148/74 (98) 85 02/28/20 16:00 136 02/28/20 16:00 Non-Rebreather 15.0 Intake and Output 02/28/20 02/29/20 19:00 07:00 Intake Total 580.000 ml Output Total 500 ml 500 ml Balance 80.000 ml -500 ml IV Total 480.000 ml Other 100 ml Output Urine Total 500 ml 500 ml Height (Feet): 5 Height (Inches): 2.99 Weight (Pounds): 134 General Appearance: WD/WN, lethargic, confused Neck: supple Cardiovascular: tachycardia Respiratory/Chest: rhonchi - bilaterally Abdomen: normal bowel sounds, non tender, soft, no organomegaly Edema: no edema noted Arm (L), no edema noted Arm (R), no edema noted Leg (L), no edema noted Leg (R), no edema noted Pedal (L), no edema noted Pedal (R), no edema noted Generalized Neurologic: disoriented Yoel Strong MD Feb 29, 2020 13:21
--- NOTE | 2020-02-29 15:35 | NUR ---
CASE MANAGEMENT: REVIEW SI: COVID-19 DETECTED . PNA T 97.6 HR 140 RR 28 BP 145/70 SAT 85% NON-BREATHER FLOW RATE 15.0 DNR / DNI IS: KEPPRA 250MG NGT Q12HR PLAQUENIL 200MG NGT TWICE A DAY TYLENOL 650MG ORAL Q4HR PRN STEP DOWN UNIT STATUS DCP: [facility] IS FROM [facility]
[2020-02-29 16:00] VITALS: BP 130/72
--- NOTE | 2020-02-29 17:21 | NUR ---
NURSE NOTES: Blood glucose by finger tip was 146mg/dl
--- NOTE | 2020-02-29 19:25 | NUR ---
HAND-OFF: Report given to Alicia MEDRANO. Pt remains stable.
--- NOTE | 2020-02-29 19:26 | NUR ---
NURSE NOTES: received pt from Mateusz RN., pt is resting on the bed and easy to arouse. pt is on 15L of nonbreather mask.O2sat is at 96% at this moment. NGT noted, intact, clean, and patent. Christensen cath is draining well with gravity. Right Hand IV 22G site intact, clean, and patent. call light within reach will continue to monitor pt with plan of care. Addendum: 02/29/20 at 2350 by PREET DEL VALLE RN error
--- NOTE | 2020-02-29 19:26 | NUR ---
NURSE NOTES: received pt from Min RN., pt is resting on the bed and abusable with painful stimuli. pt is on 15L of nonbreather mask.O2sat is at 86% at this moment. NGT right nares noted, intact, clean, and patent. Christensen cath is draining well with gravity. Right Hand IV 22G site intact, clean, and patent. call light within reach will continue to monitor pt with plan of care.
[2020-02-29 20:00] VITALS: BP 132/72
--- NOTE | 2020-02-29 21:34 | NUR ---
NURSE NOTES: left voice message regarding low ranges from 84-91% O2sat with 15L of nonbreather mask to Dr. Guajardo. will wait for call back. will closely monitor pt.
--- NOTE | 2020-02-29 22:45 | NUR ---
HAND-OFF: Report given to Lo MEDRANO., Room 202-2. pt is stable condition. endorsed plan of care.
--- NOTE | 2020-02-29 23:00 | NUR ---
NURSE NOTES: Received report from Felicitas Butler RN. Patient transported from SDU via bed to room 202-2, patient is alert and oriented x 0, patient can only open his eyes. Connected to non-rebreather mask @ 15Liters, saturating 84%, no acute signs and symptoms of distress noted at this time. 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 Patient is on NPO, she has NGT on right nares. NGT is for medications only. IV is on right hand g-22. Patient is on fall, aspiration and seizure precaution-padded side rails are on. Safety measures are in placed. Call light and bedside table within reach, bed in low and locked position, side rails up x 2. Bed alarm is on. Will continue plan of care.
--- NOTE | 2020-02-29 23:50 | NUR ---
NURSE NOTES: received pt from Mateusz RN., pt is resting on the bed and abusable with painful stimuli. pt is on 15L of nonbreather mask.O2sat is at 86% at this moment. NGT right nares noted, intact, clean, and patent. Christensen cath is draining well with gravity. Right Hand IV 22G site intact, clean, and patent. call light within reach will continue to monitor pt with plan of care. Addendum: 02/29/20 at 9881 by PREET DEL VALLE RN wrong time
[2020-03-01] VITALS: BP 128/64
[2020-03-01 04:00] VITALS: BP 121/72
[2020-03-01 05:24] LABS: HEMATOCRIT 38.5 % (37.0-47.0); MEAN CORPUSCULAR VOLUME 92 FL (80-99); PLATELET COUNT 245 K/UL (150-450); RED BLOOD COUNT 4.21 M/UL (4.20-5.40); WHITE BLOOD COUNT 21.3 K/UL (4.8-10.8)
[2020-03-01 06:06] LABS: ALANINE AMINOTRANSFERASE 22 U/L (12-78); ALBUMIN 1.9 G/DL (3.4-5.0); ALBUMIN/GLOBULIN RATIO 0.4 (1.0-2.7); ALKALINE PHOSPHATASE 101 U/L (46-116); ANION GAP 11 mmol/L (5-15); ASPARTATE AMINO TRANSFERASE 34 U/L (15-37); BILIRUBIN,TOTAL 0.3 MG/DL (0.2-1.0); BLOOD UREA NITROGEN 73 mg/dL (7-18); CALCIUM 8.9 MG/DL (8.5-10.1); CARBON DIOXIDE 26 MMOL/L (21-32); CHLORIDE 123 MMOL/L (98-107); POTASSIUM 5.3 MMOL/L (3.5-5.1); SODIUM 160 MMOL/L (136-145)
--- NOTE | 2020-03-01 06:30 | Progress Note ---
DATE: 02/29/2020 CARDIOLOGY PROGRESS NOTE SUBJECTIVE: The patient's condition continues to remain deteriorate. She remains withdrawn, hypoxic, on a non-rebreather mask. Chest x-ray continues to reveal bilateral infiltrates. The patient is tachycardic and tachypneic. Dr. Melissa, spoke with the patient's daughter and reaffirmed DNR/DNI status. PHYSICAL EXAMINATION: LUNGS: Rhonchi and rales bilaterally. CARDIAC: Regular rhythm. Rapid rate. Normal S1, S2. ABDOMEN: Soft. EXTREMITIES: No edema. IMPRESSION: 1. Respiratory failure. 2. COVID-19 pneumonia. 3. Hypoxia. 4. Dehydration. 5. Hypernatremia. 6. No signs of QTc prolongation or cardiac arrhythmias with hydroxychloroquine PLAN: Respiratory hygiene and oxygenation. Complete course of hydroxychloroquine. Continue cardiac monitoring. Recheck lab studies including magnesium and potassium levels. Milton Webb M.D. DR: NEGRA JOB#: [id number] CC:
--- NOTE | 2020-03-01 07:31 | NUR ---
HAND-OFF: Report given to MITCHELL Garsia. Patient is poor prognosis, she's on 15L non-rebreater mask saturating 88-90%. Plan of care endorsed.
--- NOTE | 2020-03-01 07:32 | NUR ---
NURSE NOTES: Received report from MITCHELL Blanchard. Patient in bed resting, no active s/s cardiac, respiratory distress noticed at this time. Patient on non-rebreather mask. AOx0, unresponsive to painful stimulus. Christensen Catheter draining well to gravity at this time. ST with HR 119. IV on right hand 20G, asymptomatic, patent, intact. Bed in lowest position, side rails upx2, call light within reach, bed alarm on. Will continue to monitor.
--- NOTE | 2020-03-01 08:02 | NUR ---
NURSE NOTES: Dr. Strong made aware no pulse, AOx0, not responsive. Per MD will call family member.
--- NOTE | 2020-03-01 08:35 | NUR ---
Patient found no palpable pulse, no heart sounds, no respiration, pupils non-reactive & fixed. Patient is DNR/DNI . Pronounced at 0810. Dr. Webb made aware. Family to call for Mortuary arrangement
--- NOTE | 2020-03-01 08:40 | NUR ---
NURSE NOTES: Called [facility] [phone], Spoke with Irma, notified. Received confirmation number [id number]
[2020-03-01] MEDS: Heparin 5000 units/ml inj SUBQ SCH (09:00)
[2020-03-01] MEDS: Lyrica 75mg cap ORAL SCH ×2 (09:00→13:00)
[2020-03-01] MEDS: levETIRAcetam 500mg/5ml Liquid NG SCH (09:00)
--- NOTE | 2020-03-01 09:17 | NUR ---
NURSE NOTES: Called Family member, Kevin Mendosa , Daughter, received information regarding Mortuary. [facility] Tele : [phone], spoke with Chikis. Chikis made aware family member would like to visit patient around 1100.
--- NOTE | 2020-03-01 13:00 | NUR ---
NURSE NOTES: Mortuary Personnel came to parts picker the body. Only belonging, wooden bracelet, given to Mortuary.
--- NOTE | 2020-03-02 12:44 | Discharge Summary ---
DATE OF ADMISSION: 02/24/2020 DATE OF DISCHARGE: 03/01/2020 SUMMARY The cause of was due to pulmonary arrest secondary to COVID-19 pneumonia elderly female transferred with complaints of worsening shortness of breath. She was positive for COVID-19 at the nursing home facility. Because of worsening hypoxemia, she was admitted, she was given hydroxychloroquine and supported with oxygen and fluids. Unfortunately she eventually . Family was notified of the patient's passing. Yoel Strong M.D. DR: KHAI JOB#: [id number] CC:
== END 2020-03-01 13:47 | disposition expired | DRG 177 ==
LOC: EDBD 12:59 → EMR 13:20 → 2W 13:44 → EDBEDREQ 02-25 05:41 → 2W 02-25 05:52 → 2E 02-29 22:44
DX: U07.1 COVID-19 (principal); J12.89 Other viral pneumonia; G92 Toxic encephalopathy; J96.91 Respiratory failure, unspecified with hypoxia; I50.31 Acute diastolic (congestive) heart failure; E44.0 Moderate protein-calorie malnutrition; E87.0 Hyperosmolality and hypernatremia; E86.0 Dehydration; Z66 Do not resuscitate; I25.10 Atherosclerotic heart disease of native coronary artery without angina pectoris; R68.0 Hypothermia, not associated with low environmental temperature; J44.9 Chronic obstructive pulmonary disease, unspecified; M81.0 Age-related osteoporosis without current pathological fracture; K21.9 Gastro-esophageal reflux disease without esophagitis; R00.0 Tachycardia, unspecified; I11.0 Hypertensive heart disease with heart failure; F01.50 Vascular dementia, unspecified severity, without behavioral disturbance, psychotic disturbance, mood disturbance, and anxiety; I69.319 Unspecified symptoms and signs involving cognitive functions following cerebral infarction; R13.10 Dysphagia, unspecified
CPT/HCPCS: 36415; 36600; 71045; 74018; 80048; 80053; 80299; 81003; 82803; 83605; 83735; 83880; 84443; 84484; 85007; 85025; 86710; 87040; 87635; 93005; 96360; 99291; J7030